=== PATIENT | female | born 1955 | race Caucasian/White ===

== ENCOUNTER → 2017-03-04 | Outpatient (CLI) | payer OTHER ==
--- NOTE | 2017-03-07 10:13 | MM ---
Reason for exam: screening (asymptomatic). Last mammogram was performed 1 year and 1 month ago. History: Family history of breast cancer in sister at age 40. Physical Findings: A clinical breast exam by your physician is recommended on an annual basis and results should be correlated with mammographic findings. MG Screening Mammo w CAD Bilateral CC and MLO view(s) were taken. Prior study comparison: January 31, 2016, mammogram, performed at [facility]. January 27, 2015, mammogram, performed at [facility]. The breast tissue is heterogeneously dense. This may lower the sensitivity of mammography. Benign calcifications. Focal asymmetry upper outer left breast. This finding is changed when compared with previous exams. ASSESSMENT: Incomplete: need additional imaging evaluation, BI-RAD 0 RECOMMENDATION: Special view mammogram of the left breast. If lesion persists on supplemental views, image directed ultrasound is recommended. [facility] will attempt to contact patient to return for supplemental views and ultrasound if indicated.
== END | disposition home or self-care (01) ==
LOC: RADMAMWWP 07:41
PROVIDERS: ATTEND Family Medicine
DX: Z12.31 Encounter for screening mammogram for malignant neoplasm of breast (principal); Z80.3 Family history of malignant neoplasm of breast

== ENCOUNTER → 2017-03-20 | Outpatient (CLI) | payer OTHER ==
--- NOTE | 2017-03-20 08:22 | MM ---
Reason for exam: additional evaluation requested from abnormal screening. Last mammogram was performed 1 month ago. History: Family history of breast cancer in sister at age 40. Physical Findings: Nurse did not find any significant physical abnormalities on exam. MG 3D Work Up W/Cad LT LM, spot compression CC, and spot compression MLO view(s) were taken of the left breast. Prior study comparison: March 04, 2017, bilateral MG screening mammo w CAD. January 31, 2016, mammogram, performed at [facility]. There is no discrete abnormality, including area of concern. 6 month follow up recommended. These results were verbally communicated with the patient and result sheet given to the patient on 03/20/17. ASSESSMENT: Probably benign, BI-RAD 3 RECOMMENDATION: Follow-up diagnostic mammogram of the left breast in 6 months.
== END | disposition home or self-care (01) ==
LOC: RADMAMWWP 07:29
PROVIDERS: ATTEND Family Medicine
DX: R92.8 Other abnormal and inconclusive findings on diagnostic imaging of breast (principal)
CPT/HCPCS: G0206; G0279

== ENCOUNTER 2017-05-03 02:03 | Emergency (ER) | payer OTHER ==
[2017-05-03] MEDS ORDERED: ONDANSETRON 4 MG/2 ML VIAL IVP STA (02:07)
[2017-05-03 02:09] LABS: Glucose,Whole Blood 159 mg/dL (75-99)
--- NOTE | 2017-05-03 02:11 | ED ---
General Adult HPI - General Stated complaint: altered mental status Time Seen by Provider: 05/03/17 02:03 Source: RN notes reviewed - History of Present Illness Initial comments: This is a 62-year-old female with a past medical history significant for high blood pressure. Patient states she was in the waiting room because she had brought her to the hospital. Patient states while sitting there she became nauseated and then dizzy then according to the staff in the waiting room she passed out. Patient did vomit a little as well. By the time the patient was wheeled back to room 20 she was alert she was in the hospital new she had brought her . Patient states she still felt a little dizzy and mildly nauseated. Patient denies any headache patient denies numbness weakness. Patient denies any chest pain palpitations difficulty breathing or shortness of breath. Patient denies any back pain. Patient denies abdominal pain patient denies nausea vomiting diarrhea. Patient denies having any symptoms prior to coming to the hospital. Patient denies any recent fever chills or cough. Patient did admit to having 3 drinks prior to coming to the hospital. - Related Data Home Medications Medication Instructions Recorded Confirmed Aspirin 81 mg PO DAILY 02/07/16 05/03/17 Lisinopril [Prinivil] 10 mg PO DAILY 02/07/16 05/03/17 Multivitamins, Thera [Multivitamin] 1 tab PO DAILY 02/07/16 05/03/17 Simvastatin [Zocor] 40 mg PO HS 02/07/16 05/03/17 Allergies Allergy/AdvReac Type Severity Reaction Status Date / Time No Known Allergies Allergy Verified 07/07/16 15:58 Review of Systems ROS Statement: Those systems with pertinent positive or pertinent negative responses have been documented in the HPI. ROS Other: All systems not noted in ROS Statement are negative. Past Medical History Past Medical History: GERD/Reflux, Hyperlipidemia, Hypertension Additional Past Medical History / Comment(s): GERD MILD, YEARS AGO. C/O FEELING LIKE "THROAT SWOLLEN, PRESSURE IN CHEST" FOR 3-4 WKS; OCC SL PAIN IN SHOULDER BLADES. History of Any Multi-Drug Resistant Organisms: None Reported Past Surgical History: Bladder Surgery, Hysterectomy, Orthopedic Surgery Additional Past Surgical History / Comment(s): BLADDER SUSPENSION. LASER OF VARICOSE VEINS. TOTAL RT KNEE. Past Anesthesia/Blood Transfusion Reactions: Motion Sickness Past Psychological History: No Psychological Hx Reported Smoking Status: Former smoker Past Alcohol Use History: None Reported Additional Past Alcohol Use History / Comment(s): SMOKED FEW YEARS, SOCIALLY IN PAST. Past Drug Use History: None Reported - Past Family History Sister(s) Family Medical History: Cancer, Deep Vein Thrombosis (DVT) General Exam - General Exam Comments Initial Comments: GENERAL: Patient is well-developed and well-nourished. Patient is nontoxic and well- hydrated and is in mild distress. ENT: Neck is soft and supple. No significant lymphadenopathy is noted. Oropharynx is clear. Moist mucous membranes. Neck has full range of motion without eliciting any pain. EYES: The sclera were anicteric and conjunctiva were pink and moist. Extraocular movements were intact and pupils were equal round and reactive to light. Eyelids were unremarkable. PULMONARY: Unlabored respirations. Good breath sounds bilaterally. No audible rales rhonchi or wheezing was noted. CARDIOVASCULAR: There is a regular rate and rhythm without any murmurs gallops or rubs. ABDOMEN: Soft and nontender with normal bowel sounds. No palpable organomegaly was noted. There is no palpable pulsatile mass. SKIN: Skin is clear with no lesions or rashes and otherwise unremarkable. NEUROLOGIC: Patient is alert and oriented x3. Cranial nerves II through XII are grossly intact. Motor and sensory are also intact. Normal speech, volume and content. Symmetrical smile. MUSCULOSKELETAL: Normal extremities with adequate strength and full range of motion. LYMPHATICS: No significant lymphadenopathy is noted PSYCHIATRIC: Normal psychiatric evaluation. Normal interpersonal interactions appears functionally intact in deals appropriately with others. Course Vital Signs 05/03/17 05/03/17 02:05 03:19 Temperature 97.8 F Pulse Rate 69 64 Respiratory 20 14 Rate Blood Pressure 150/69 134/69 O2 Sat by Pulse 95 98 Oximetry Medical Decision Making - Medical Decision Making EKG shows normal sinus rhythm at 66 bpm PA interval is 154 QRS is 98 QT interval is 458 QTC is 480. Patient's EKG shows no ST segment elevation or depression. I compared this EKG to an old EKG no acute changes were noted. Chest x-ray shows no acute normalities. Patient remains asymptomatic since she was brought back into the emergency department. I offered the patient admission but she did not feel as though she needs to stay and said she follow-up with her own medical doctor. - Lab Data Result diagrams: 05/03/17 02:15 05/03/17 02:15 Lab Results 05/03/17 05/03/17 05/03/17 Range/Units 02:07 02:15 02:15 WBC 9.2 (3.8-10.6) k/uL RBC 4.78 (3.80-5.40) m/uL Hgb 15.1 (11.4-16.0) gm/dL Hct 43.4 (34.0-46.0) % MCV 90.8 (80.0-100.0) fL MCH 31.7 (25.0-35.0) pg MCHC 34.9 (31.0-37.0) g/dL RDW 13.8 (11.5-15.5) % Plt Count 270 (150-450) k/uL Neutrophils % 43 % Lymphocytes % 45 % Monocytes % 5 % Eosinophils % 4 % Basophils % 1 % Neutrophils # 3.9 (1.3-7.7) k/uL Lymphocytes # 4.1 (1.0-4.8) k/uL Monocytes # 0.5 (0-1.0) k/uL Eosinophils # 0.3 (0-0.7) k/uL Basophils # 0.1 (0-0.2) k/uL PT (9.0-12.0) sec INR (<1.2) APTT (22.0-30.0) sec Sodium (137-145) mmol/L Potassium (3.5-5.1) mmol/L Chloride (98-107) mmol/L Carbon Dioxide (22-30) mmol/L Anion Gap mmol/L BUN (7-17) mg/dL Creatinine (0.52-1.04) mg/dL Est GFR (MDRD) Af Amer (>60 ml/min/1.73 sqM) Est GFR (MDRD) Non-Af (>60 ml/min/1.73 sqM) Glucose (74-99) mg/dL POC Glucose (mg/dL) 159 H (75-99) mg/dL POC Glu Resort Keeper ID Danitza Cardona Calcium (8.4-10.2) mg/dL Magnesium (1.6-2.3) mg/dL Total Bilirubin (0.2-1.3) mg/dL AST (14-36) U/L ALT (9-52) U/L Alkaline Phosphatase (38-126) U/L Total Creatine Kinase 54 (30-135) U/L CK-MB (CK-2) 0.4 (0.0-2.4) ng/mL CK-MB (CK-2) Rel Index 0.7 Troponin I <0.012 (0.000-0.034) ng/mL Total Protein (6.3-8.2) g/dL Albumin (3.5-5.0) g/dL Serum Alcohol mg/dL 05/03/17 05/03/17 Range/Units 02:15 02:15 WBC (3.8-10.6) k/uL RBC (3.80-5.40) m/uL Hgb (11.4-16.0) gm/dL Hct (34.0-46.0) % MCV (80.0-100.0) fL MCH (25.0-35.0) pg MCHC (31.0-37.0) g/dL RDW (11.5-15.5) % Plt Count (150-450) k/uL Neutrophils % % Lymphocytes % % Monocytes % % Eosinophils % % Basophils % % Neutrophils # (1.3-7.7) k/uL Lymphocytes # (1.0-4.8) k/uL Monocytes # (0-1.0) k/uL Eosinophils # (0-0.7) k/uL Basophils # (0-0.2) k/uL PT 10.1 (9.0-12.0) sec INR 1.0 (<1.2) APTT 19.0 L (22.0-30.0) sec Sodium 141 (137-145) mmol/L Potassium 3.4 L (3.5-5.1) mmol/L Chloride 106 (98-107) mmol/L Carbon Dioxide 21 L (22-30) mmol/L Anion Gap 14 mmol/L BUN 15 (7-17) mg/dL Creatinine 0.80 (0.52-1.04) mg/dL Est GFR (MDRD) Af Amer >60 (>60 ml/min/1.73 sqM) Est GFR (MDRD) Non-Af >60 (>60 ml/min/1.73 sqM) Glucose 137 H (74-99) mg/dL POC Glucose (mg/dL) (75-99) mg/dL POC Glu Resort Keeper ID Calcium 9.5 (8.4-10.2) mg/dL Magnesium 2.2 (1.6-2.3) mg/dL Total Bilirubin 0.3 (0.2-1.3) mg/dL AST 28 (14-36) U/L ALT 34 (9-52) U/L Alkaline Phosphatase 55 (38-126) U/L Total Creatine Kinase (30-135) U/L CK-MB (CK-2) (0.0-2.4) ng/mL CK-MB (CK-2) Rel Index Troponin I (0.000-0.034) ng/mL Total Protein 6.8 (6.3-8.2) g/dL Albumin 4.3 (3.5-5.0) g/dL Serum Alcohol 17 mg/dL Disposition Clinical Impression: Vasovagal syncope Disposition: HOME SELF-CARE Instructions: Syncope (ED), Hypotension (ED) Referrals: Nonstaff,Physician [REFERRING] - 1-2 days Time of Disposition: 04:10
[2017-05-03 02:25] LABS: Basophils # (A) 0.1 k/uL (0-0.2); Basophils % (A) 1 %; CHCM 35.4; Eosinophils # (A) 0.3 k/uL (0-0.7); Eosinophils % (A) 4 %; HCT 43.4 % (34.0-46.0); HDW 2.54; HGB 15.1 gm/dL (11.4-16.0); Luc # (Auto) 0.21; Luc % (Auto) 2; Lymphocytes # (A) 4.1 k/uL (1.0-4.8); Lymphocytes % (A) 45 %; MCH 31.7 pg (25.0-35.0); MCHC 34.9 g/dL (31.0-37.0); MCV 90.8 fL (80.0-100.0); Mean Platelet Volume 7.5; Monocytes # (A) 0.5 k/uL (0-1.0); Monocytes % (A) 5 %; Neutrophils # (A) 3.9 k/uL (1.3-7.7); Neutrophils % (A) 43 %; RBC 4.78 m/uL (3.80-5.40); RDW 13.8 % (11.5-15.5); WBC 9.2 k/uL (3.8-10.6)
[2017-05-03 02:35] LABS: Prothrombin Time 10.1 sec (9.0-12.0)
[2017-05-03 02:38] LABS: ALT 34 U/L (9-52); AST 28 U/L (14-36); Alcohol 17 mg/dL; Alkaline Phosphatase 55 U/L (38-126); Anion Gap 14 mmol/L; Blood Urea Nitrogen 15 mg/dL (7-17); Calcium 9.5 mg/dL (8.4-10.2); Carbon Dioxide 21 mmol/L (22-30); Chloride 106 mmol/L (98-107); Glucose 137 mg/dL (74-99); Magnesium 2.2 mg/dL (1.6-2.3); Non-African American GFR(MDRD) >60 (>60 ml/min/1.73 sqM); Potassium 3.4 mmol/L (3.5-5.1); Sodium 141 mmol/L (137-145); Total Bilirubin 0.3 mg/dL (0.2-1.3); Total Protein 6.8 g/dL (6.3-8.2)
[2017-05-03] MEDS ORDERED: SODIUM CHLORIDE 0.9% 1,000 ML IV ONE (02:42)
[2017-05-03 02:46] LABS: Creatine Kinase 54 U/L (30-135)
[2017-05-03 02:59] LABS: Creatine Kinase MB 0.4 ng/mL (0.0-2.4); Troponin I <0.012 ng/mL (0.000-0.034)
--- NOTE | 2017-05-03 03:56 | XR ---
Exam: XR CXR 2 VIEWS History: Chest pain. Comparison: None provided. Technique: Frontal and lateral views. Findings: No definite consolidation or significant effusion. The heart shadow is top normal in transverse dimension. Minimal prominence of pulmonary vessels. Findings are probably accentuated by low lung volumes/technique. Minimal congestion is not ruled out. Impression: Question mild congestion/volume overload. No consolidation.
[2017-05-03] MEDS ORDERED: ONDANSETRON 4 MG ODT STARTER PACK 2 TAB BTL PO STA (04:12)
[2017-05-03 04:33] VITALS: BP 140/70; PULSE 68; RESP 16; TEMP 97.9
== END 2017-05-03 04:42 | disposition home or self-care (01) ==
LOC: EC 02:03
DX: R55 Syncope and collapse (principal); R11.2 Nausea with vomiting, unspecified; E78.5 Hyperlipidemia, unspecified; I10 Essential (primary) hypertension; Z87.891 Personal history of nicotine dependence; Z79.82 Long term (current) use of aspirin; Z79.899 Other long term (current) drug therapy
CPT/HCPCS: 36415; 93005; 80053; 82550; 82553; 83735; 84484; 85025; 85610; 85730; 80320; 71020; 99285; 96374; 96361; J2405; S0119

== ENCOUNTER → 2017-09-09 | Outpatient (CLI) | payer OTHER ==
--- NOTE | 2017-09-10 07:55 | MM ---
Reason for exam: follow-up at short interval from prior study. Last mammogram was performed 6 months ago. History: Family history of breast cancer in sister at age 40. Physical Findings: Nurse did not find any significant physical abnormalities on exam. MG 3D Diag Mammo W/Cad LT CC, MLO, and spot compression MLO view(s) were taken of the left breast. Prior study comparison: March 20, 2017, left breast MG 3d work up w/cad LT. March 04, 2017, bilateral MG screening mammo w CAD. There are scattered fibroglandular densities. The originally questioned superior asymmetric density has an appearance unchanged from older priors. These results were verbally communicated with the patient and result sheet given to the patient on 09/09/17. ASSESSMENT: Negative, BI-RAD 1 RECOMMENDATION: Return to routine screening mammogram schedule for both breasts. Back on schedule.
== END | disposition home or self-care (01) ==
LOC: RADMAMWWP 14:57
PROVIDERS: ATTEND Family Medicine
DX: R92.8 Other abnormal and inconclusive findings on diagnostic imaging of breast (principal)
CPT/HCPCS: G0206; G0279

== ENCOUNTER 2017-10-02 10:26 | Day surgery (SDC) | payer OTHER ==
[2017-09-30 16:01] VITALS: BMI 32.1
[~2017-10-02 10:26] MED LIST: LACTATED RINGERS 1,000 ML IV SCH; LIDOCAINE 1% 20 ML VIAL (10MG/ML) FOR IV START INTRADERMA PRN
[2017-10-02] MEDS ORDERED: LACTATED RINGERS 1,000 ML IV ONE ×2 (11:18)
[2017-10-02 11:21] VITALS: TEMP 97
[2017-10-02] MEDS ORDERED: LIDOCAINE 1% INJ 10MG/ML (20 ML MDV) ONE (11:51)
[2017-10-02] MEDS ORDERED: PROPOFOL 10 MG/ML 20 ML VIAL IV ONE (11:51)
--- NOTE | 2017-10-02 12:10 | P.PCN ---
Date of Procedure: 10/02/17 Procedure(s) Performed: BRIEF HISTORY: Patient is a 62-year-old pleasant white female, scheduled for an elective colonoscopy as a part of screening for colorectal neoplasia. Her last colonoscopy was 10 years ago and was normal. PROCEDURE PERFORMED: Colonoscopy. PREOPERATIVE DIAGNOSIS: Screening for colon cancer. IV sedation per Anesthesia. PROCEDURE: After informed consent was obtained, the patient, was brought into the endoscopy unit. IV sedation was administered by Anesthesia under continuous monitoring. Digital rectal examination was normal. Initially the Olympus CF- 160 flexible video colonoscope was then inserted in the rectum, gradually advanced into the cecum without any difficulty. Careful examination was performed as the scope was gradually being withdrawn. Ileocecal valve and the appendiceal orifice were visualized and appeared normal. Prep was excellent. Mucosa of the cecum, ascending colon, transverse colon, descending colon, sigmoid colon, and rectum appeared normal. Scattered sigmoid diverticulosis seen. Retroflexion was performed in the rectum and no lesions were seen. The patient tolerated the procedure well. IMPRESSION: Normal-appearing colon from rectum to cecum with no evidence of colorectal neoplasia. Scattered sigmoidal reticulosis. RECOMMENDATIONS: Findings of this examination were discussed with the patient as well as her family. She was advised to have a repeat screening colonoscopy in 10 years.
[2017-10-02 12:14] VITALS: BP 118/59
[2017-10-02 12:26] VITALS: PULSE 73; RESP 16
== END 2017-10-02 12:47 | disposition home or self-care (01) ==
LOC: ORWHC2ENDO 10:26
PROVIDERS: ATTEND Internal Medicine Gastroenterology
DX: Z12.11 Encounter for screening for malignant neoplasm of colon (principal); K57.30 Diverticulosis of large intestine without perforation or abscess without bleeding; I10 Essential (primary) hypertension; E78.5 Hyperlipidemia, unspecified; Z79.899 Other long term (current) drug therapy; Z96.659 Presence of unspecified artificial knee joint
CPT/HCPCS: G0121; J2001; J2704

== ENCOUNTER 2018-01-29 17:21 | Emergency (ER) | payer BC, OTHER ==
--- NOTE | 2018-01-29 19:00 | ED ---
General Adult HPI - General Chief complaint: Weakness Stated complaint: ABNORMAL EKG, NAUSEA, NEAR SYNCOPE Time Seen by Provider: 01/29/18 17:50 Source: patient Mode of arrival: ambulatory Limitations: no limitations - History of Present Illness Initial comments: This 62-year-old white female presents for presyncope. She relates that she was at a restaurant. She developed some abdominal cramping and went to the bathroom and had a diarrhea episode. She felt presyncopal and laid down on the floor. She states that she had 2 additional diarrhea episodes. She felt somewhat weak afterwards and went back into the restaurant and felt presyncopal again. They laid her down on the floor. She then went to a clinic and they sent her to the emergency department via EMS. She denies any chest pain or shortness breath during this incident. She states that she has not had any further abdominal pain or diarrhea. She denies any further presyncopal feelings or dizziness. She essentially feels back to normal. She does relate that she had one episode that was very similar approximately a year ago while she was in our emergency department when her was being evaluated. She apparently did pass out at that time and was evaluated in the emergency department and hospital and they never found out the exact cause. She denies any other medical complaints or modifying factors. - Related Data Home Medications Medication Instructions Recorded Confirmed Aspirin 81 mg PO DAILY 02/07/16 01/29/18 Lisinopril [Prinivil] 10 mg PO DAILY 02/07/16 01/29/18 Multivitamins, Thera [Multivitamin] 1 tab PO DAILY 02/07/16 01/29/18 Simvastatin [Zocor] 40 mg PO HS 02/07/16 01/29/18 Oxybutynin Xl [Ditropan Xl] 5 mg PO DAILY 01/29/18 01/29/18 Ubidecarenone [Co Q-10] 100 mg PO DAILY 01/29/18 01/29/18 Vitamin B Complex 1 cap PO DAILY 01/29/18 01/29/18 Allergies Allergy/AdvReac Type Severity Reaction Status Date / Time No Known Allergies Allergy Verified 01/29/18 18:55 Review of Systems ROS Statement: Those systems with pertinent positive or pertinent negative responses have been documented in the HPI. ROS Other: All systems not noted in ROS Statement are negative. Past Medical History Past Medical History: GERD/Reflux, Hyperlipidemia, Hypertension Additional Past Medical History / Comment(s): urinary incontinence History of Any Multi-Drug Resistant Organisms: None Reported Past Surgical History: Bladder Surgery, Hysterectomy, Orthopedic Surgery, Tonsillectomy Additional Past Surgical History / Comment(s): BLADDER SUSPENSION. LASER OF VARICOSE VEINS. TOTAL RT KNEE. Past Anesthesia/Blood Transfusion Reactions: Motion Sickness Past Psychological History: No Psychological Hx Reported Smoking Status: Never smoker Past Alcohol Use History: Rare Past Drug Use History: None Reported - Past Family History Sister(s) Family Medical History: Cancer, Deep Vein Thrombosis (DVT) Additional Family Medical History / Comment(s): one sister ca, one had DVT General Exam - General Exam Comments Initial Comments: GENERAL: The patient is well nourished and well hydrated. VITAL SIGNS: Heart rate, blood pressure, respiratory rate reviewed as recorded in nurse's notes. EYES: Pupils are round and reactive. Extraocular movements are intact. No conjunctival / lid redness or swelling. ENT: No external evidence of injury, swelling, or ecchymosis. Airway is patent. Throat is clear. NECK: Nontender. No swelling or evidence of injury. No subcutaneous emphysema. Trachea is midline. No thyroid mass. HEART: Regular rate and rhythm. Good peripheral pulses. LUNGS/CHEST: Breath sounds clear and equal bilaterally. No rales, rhonchi, or wheezes. No ecchymosis, subcutaneous emphysema, or tenderness. ABDOMEN: Abdomen soft without tenderness. No palpable masses or organomegaly. No peritoneal signs. No abdominal wall swelling or ecchymosis. EXTREMITIES: No extremity tenderness. Normal muscle tone and function. No thoracolumbar tenderness. NEUROLOGIC: Sensation is grossly intact. Cranial nerve exam reveals face is symmetrical, tongue is midline, speech is clear. SKIN: No abrasions or ecchymosis is noted. No induration or masses noted. PSYCHIATRIC: Alert and oriented. Appropriate behavior and judgment. Limitations: no limitations Course Vital Signs 01/29/18 01/29/18 18:02 19:02 Temperature 98.6 F Pulse Rate 67 73 Respiratory 19 19 Rate Blood Pressure 161/82 167/77 O2 Sat by Pulse 96 100 Oximetry Medical Decision Making - Medical Decision Making The patient was seen and examined. All diagnostics were reviewed. The patient had an EKG done which shows a normal sinus rhythm at a heart rate of 68. There is some T-wave inversions in the V3 through V6 as well as 1 and aVL. There is no ST elevation identified. The WV intervals 136, QRS duration is 86, and the QTC intervals 450. The old EKG was reviewed from April 2017 and this also shows similar T-wave inversions in the same leads. EMS EKG is reviewed and is similar. The patient also had a laboratory analysis that was all essentially within normal limits. On recheck she states that she is feeling back to her normal state and is not having any further episodes of abdominal pain, diarrhea , or presyncope. Overall, it is felt as though she likely did have a vasovagal episode from the abdominal pain and diarrhea. It sounds as though she likely had a vasovagal episode on the last admission as well. Nevertheless, she feels quite well at this time and it is felt as though she is stable for discharge and close follow-up with her doctor. Upon being discharged, she relates that she had some hematuria well at the clinic prior to arrival. She is denying any frequency, urgency, or dysuria, or gross hematuria. She is offered to have a urinalysis completed but refused and will follow-up with her primary care physician for a urinalysis. - Lab Data Result diagrams: 01/29/18 18:45 01/29/18 18:45 Lab Results 01/29/18 01/29/18 01/29/18 Range/Units 18:45 18:45 18:45 WBC 9.8 (3.8-10.6) k/uL RBC 5.03 (3.80-5.40) m/uL Hgb 15.0 (11.4-16.0) gm/dL Hct 43.7 (34.0-46.0) % MCV 86.9 (80.0-100.0) fL MCH 29.8 (25.0-35.0) pg MCHC 34.3 (31.0-37.0) g/dL RDW 12.4 (11.5-15.5) % Plt Count 231 (150-450) k/uL Neutrophils % 79 % Lymphocytes % 16 % Monocytes % 3 % Eosinophils % 1 % Basophils % 0 % Neutrophils # 7.8 H (1.3-7.7) k/uL Lymphocytes # 1.6 (1.0-4.8) k/uL Monocytes # 0.3 (0-1.0) k/uL Eosinophils # 0.1 (0-0.7) k/uL Basophils # 0.0 (0-0.2) k/uL PT (9.0-12.0) sec INR (<1.2) APTT (22.0-30.0) sec Sodium 143 (137-145) mmol/L Potassium 4.3 (3.5-5.1) mmol/L Chloride 104 (98-107) mmol/L Carbon Dioxide 22 (22-30) mmol/L Anion Gap 17 mmol/L BUN 18 H (7-17) mg/dL Creatinine 0.60 (0.52-1.04) mg/dL Est GFR (CKD-EPI)AfAm >90 (>60 ml/min/1.73 sqM) Est GFR (CKD-EPI)NonAf >90 (>60 ml/min/1.73 sqM) Glucose 106 H (74-99) mg/dL Calcium 10.0 (8.4-10.2) mg/dL Total Bilirubin 0.4 (0.2-1.3) mg/dL AST 30 (14-36) U/L ALT 29 (9-52) U/L Alkaline Phosphatase 59 (38-126) U/L Total Creatine Kinase 60 (30-135) U/L CK-MB (CK-2) 0.3 (0.0-2.4) ng/mL CK-MB (CK-2) Rel Index 0.5 Troponin I <0.012 (0.000-0.034) ng/mL Total Protein 7.0 (6.3-8.2) g/dL Albumin 4.8 (3.5-5.0) g/dL 01/29/18 Range/Units 18:45 WBC (3.8-10.6) k/uL RBC (3.80-5.40) m/uL Hgb (11.4-16.0) gm/dL Hct (34.0-46.0) % MCV (80.0-100.0) fL MCH (25.0-35.0) pg MCHC (31.0-37.0) g/dL RDW (11.5-15.5) % Plt Count (150-450) k/uL Neutrophils % % Lymphocytes % % Monocytes % % Eosinophils % % Basophils % % Neutrophils # (1.3-7.7) k/uL Lymphocytes # (1.0-4.8) k/uL Monocytes # (0-1.0) k/uL Eosinophils # (0-0.7) k/uL Basophils # (0-0.2) k/uL PT 10.2 (9.0-12.0) sec INR 1.0 (<1.2) APTT 20.7 L (22.0-30.0) sec Sodium (137-145) mmol/L Potassium (3.5-5.1) mmol/L Chloride (98-107) mmol/L Carbon Dioxide (22-30) mmol/L Anion Gap mmol/L BUN (7-17) mg/dL Creatinine (0.52-1.04) mg/dL Est GFR (CKD-EPI)AfAm (>60 ml/min/1.73 sqM) Est GFR (CKD-EPI)NonAf (>60 ml/min/1.73 sqM) Glucose (74-99) mg/dL Calcium (8.4-10.2) mg/dL Total Bilirubin (0.2-1.3) mg/dL AST (14-36) U/L ALT (9-52) U/L Alkaline Phosphatase (38-126) U/L Total Creatine Kinase (30-135) U/L CK-MB (CK-2) (0.0-2.4) ng/mL CK-MB (CK-2) Rel Index Troponin I (0.000-0.034) ng/mL Total Protein (6.3-8.2) g/dL Albumin (3.5-5.0) g/dL Disposition Clinical Impression: Pre-syncope, Vaso vagal episode, Hypertension, Abdominal pain, Diarrhea Disposition: HOME SELF-CARE Condition: Good Instructions: Near Syncope (ED), Hypertension (ED) Additional Instructions: We feel as though here symptoms may be related to a vagal episode. Is patient prescribed a controlled substance at discharge?: No Referrals: Yoni Schmidt MD [Primary Care Provider] - 1-2 days Time of Disposition: 19:44
[2018-01-29 19:01] LABS: Basophils % (A) 0 %; Eosinophils # (A) 0.1 k/uL (0-0.7); Eosinophils % (A) 1 %; HCT 43.7 % (34.0-46.0); Lymphocytes # (A) 1.6 k/uL (1.0-4.8); Lymphocytes % (A) 16 %; MCH 29.8 pg (25.0-35.0); MCHC 34.3 g/dL (31.0-37.0); MCV 86.9 fL (80.0-100.0); Mean Platelet Volume 7.6; Monocytes # (A) 0.3 k/uL (0-1.0); Monocytes % (A) 3 %; Neutrophils # (A) 7.8 k/uL (1.3-7.7); Neutrophils % (A) 79 %; Platelet Count 231 k/uL (150-450); RBC 5.03 m/uL (3.80-5.40); RDW 12.4 % (11.5-15.5); WBC 9.8 k/uL (3.8-10.6)
[2018-01-29 19:04] LABS: ALT 29 U/L (9-52); AST 30 U/L (14-36); Albumin 4.8 g/dL (3.5-5.0); Alkaline Phosphatase 59 U/L (38-126); Anion Gap 17 mmol/L; Blood Urea Nitrogen 18 mg/dL (7-17); Carbon Dioxide 22 mmol/L (22-30); Chloride 104 mmol/L (98-107); Glucose 106 mg/dL (74-99); Potassium 4.3 mmol/L (3.5-5.1); Sodium 143 mmol/L (137-145); Total Bilirubin 0.4 mg/dL (0.2-1.3)
[2018-01-29 19:09] LABS: Prothrombin Time 10.2 sec (9.0-12.0)
[2018-01-29 19:11] LABS: Partial Thromboplastin Time 20.7 sec (22.0-30.0)
[2018-01-29 19:13] LABS: Creatine Kinase 60 U/L (30-135)
[2018-01-29 19:26] LABS: Creatine Kinase MB 0.3 ng/mL (0.0-2.4); Troponin I <0.012 ng/mL (0.000-0.034)
[2018-01-29 19:57] VITALS: BP 153/73; PULSE 63; RESP 16; TEMP 97.8
== END 2018-01-29 20:06 | disposition home or self-care (01) ==
LOC: EC 17:21
DX: I10 Essential (primary) hypertension (principal); R19.7 Diarrhea, unspecified; R10.9 Unspecified abdominal pain; R55 Syncope and collapse; E78.5 Hyperlipidemia, unspecified; Z79.82 Long term (current) use of aspirin; Z79.899 Other long term (current) drug therapy; Z87.448 Personal history of other diseases of urinary system
CPT/HCPCS: 36415; 80053; 82550; 82553; 84484; 85025; 85610; 85730; 93005; 99285

== ENCOUNTER → 2018-03-27 | Outpatient (CLI) | payer BC | LOC: RADECHMAIN 11:48 | PROVIDERS: ATTEND Psychiatry & Neurology Neurology | DX: R55 Syncope and collapse (principal); I49.9 Cardiac arrhythmia, unspecified | CPT/HCPCS: 93225; 93226 ==

== ENCOUNTER → 2018-04-23 | Outpatient (CLI) | payer BC ==
--- NOTE | 2018-04-23 13:10 | BD ---
EXAMINATION TYPE: Axial Bone Density DATE OF EXAM: 04/23/2018 COMPARISON: NONE CLINICAL HISTORY: 63-year-old female postmenopausal screening without HRT Height: 66 Weight: 182.8 FRAX RISK QUESTIONS: Alcohol (3 or more units per day): no Family History (Parent hip fracture): no Glucocorticoids (More than 3mos): no (Ex: prednisone, prednisolone, methylprednisolone, dexamethasone, and hydrocortisone). History of Fracture in Adulthood: no Secondary Osteoporosis: 1. Type 1 Diabetes: no 2. Hyperthyroidism: no 3. Menopause before 45: no 4. Malnutrition: no 5. Chronic liver disease: no Rheumatoid Arthritis: no Current Tobacco Use: no RISK FACTORS HISTORY OF: Family History of Osteoporosis: no Active: yes Diet low in dairy products/other sources of calcium: no Postmenopausal woman: total hysterectomy 15 years ago Lost more than 2 inches in height since high school: no MEDICATIONS: blood pressure med, cholesterol med, Additional History: EXAM MEASUREMENTS: Bone mineral densitometry was performed using the [employer] System. Bone mineral density as measured about the Lumbar spine is: ----- L1-L4(G/cm2): 1.375 T Score Values are as follows: ----- L2: 1.3 ----- L3: 1.8 ----- L4: 2.2 ----- L1-L4: 1.6 Bone mineral density : baseline Bone mineral density about the R hip (g/cm2): 0.824 Bone mineral density about the L hip (g/cm2): 0.856 T Score values are as follows: -----R Neck: -1.5 -----L Neck: -1.3 -----R Total: -0.9 -----L Total: -0.6 Bone mineral density : baseline IMPRESSION: Osteopenia (T Score between -2.5 and -1). There is slightly increased risk of fracture and the patient may be considered for treatment. Re-Screen 2-5 years. NOTE: T-SCORE=SD OF THE YOUNG ADULT MEAN.
--- NOTE | 2018-04-24 15:26 | MM ---
Reason for exam: screening (asymptomatic). Last mammogram was performed 7 months ago. History: Family history of breast cancer in sister at age 40. Physical Findings: A clinical breast exam by your physician is recommended on an annual basis and results should be correlated with mammographic findings. MG 3D Screening Mammo W/Cad Bilateral CC and MLO view(s) were taken. Prior study comparison: September 09, 2017, left breast MG 3d diag mammo w/cad LT. March 20, 2017, left breast MG 3d work up w/cad LT. The breast tissue is heterogeneously dense. This may lower the sensitivity of mammography. Asymmetric breast tissue left upper quadrant is stable. There is no discrete abnormality. ASSESSMENT: Negative, BI-RAD 1 RECOMMENDATION: Routine screening mammogram of both breasts in 1 year.
== END | disposition home or self-care (01) ==
LOC: RADMAMWWP 07:41
PROVIDERS: ATTEND Family Medicine
DX: Z12.31 Encounter for screening mammogram for malignant neoplasm of breast (principal); M85.852 Other specified disorders of bone density and structure, left thigh; M85.851 Other specified disorders of bone density and structure, right thigh; Z78.0 Asymptomatic menopausal state
CPT/HCPCS: 77063; 77067; 77080

== ENCOUNTER → 2019-05-12 | Outpatient (CLI) | payer MEDICARE ==
--- NOTE | 2019-05-13 11:15 | MM ---
Reason for exam: clinical finding. Last mammogram was performed 1 year and 1 month ago. History: Patient is postmenopausal. Family history of breast cancer in sister at age 40. Took estrogen for 4 months beginning at age 64. Physical Findings: Nurse did not find any significant physical abnormalities on exam. MG 3D Diag Mammo W/Cad [facility] Bilateral CC and MLO view(s) were taken. Prior study comparison: April 23, 2018, bilateral MG 3d screening mammo w/cad. September 09, 2017, left breast MG 3d diag mammo w/cad LT. The breast tissue is heterogeneously dense. This may lower the sensitivity of mammography. There is a benign left breast calcification. No suspicious abnormality. No significant new finding when compared with prior studies. ASSESSMENT: Benign, BI-RAD 2 RECOMMENDATION: Clinical correlation of the left breast. The diffuse left breast pain. Routine screening mammogram of both breasts in 1 year. Patient was given the results on 05/12/19.
== END | disposition home or self-care (01) ==
LOC: RADMAMWWP 09:33
PROVIDERS: ATTEND Family Medicine
DX: N64.4 Mastodynia (principal)
CPT/HCPCS: 77062; 77066

== ENCOUNTER → 2020-04-29 | Outpatient (CLI) | payer MEDICARE ==
--- NOTE | 2020-05-02 10:09 | MM ---
Reason for exam: screening (asymptomatic). Last mammogram was performed 1 year ago. History: Patient is postmenopausal. Family history of breast cancer in sister at age 40. Took estrogen for 4 months beginning at age 64. Physical Findings: A clinical breast exam by your physician is recommended on an annual basis and results should be correlated with mammographic findings. MG 3D Screening Mammo W/Cad Bilateral CC and MLO view(s) were taken. Prior study comparison: May 12, 2019, bilateral MG 3d diag mammo w/cad [facility]. April 23, 2018, bilateral MG 3d screening mammo w/cad. The breast tissue is heterogeneously dense. This may lower the sensitivity of mammography. No significant changes when compared with prior studies. ASSESSMENT: Benign, BI-RAD 2 RECOMMENDATION: Routine screening mammogram of both breasts in 1 year.
== END | disposition home or self-care (01) ==
LOC: RADMAMWWP 09:39
PROVIDERS: ATTEND Family Medicine
DX: Z12.31 Encounter for screening mammogram for malignant neoplasm of breast (principal)
CPT/HCPCS: 77063; 77067

== ENCOUNTER → 2020-05-09 | Outpatient (CLI) | payer MEDICARE ==
--- NOTE | 2020-05-09 14:04 | BD ---
EXAMINATION TYPE: Axial Bone Density DATE OF EXAM: 05/09/2020 COMPARISON: 04/23/2018 CLINICAL HISTORY: Height: 65.2 IN Weight: 182 LBS RISK FACTORS HISTORY OF: Active: YES Diet low in dairy products/other sources of calcium: YES Postmenopausal woman: PARTIAL HYSTERECTOMY AGE 43 MEDICATIONS: Additional Medications: BLOOD PRESSURE MEDS, AND CHOLESTEROL MEDS EXAM MEASUREMENTS: Bone mineral densitometry was performed using the [employer] System. Bone mineral density as measured about the Lumbar spine is: ----- L1-L4(G/cm2): 1.486 T Score Values are as follows: ----- L2: 2.2 ----- L3: 2.7 ----- L4: 3.4 ----- L1-L4: 2.5 Bone mineral density has: Increased 8.6% since study of: 04/23/2018 Bone mineral density about the R hip (g/cm2): 0.827 Bone mineral density about the L hip (g/cm2): 0.820 T Score values are as follows: -----R Neck: -1.5 -----L Neck: -1.6 -----R Total: -0.9 -----L Total: -0.9 Bone mineral density has: Decreased -2.4% since study of: 04/23/2018 IMPRESSION: Osteopenia (T Score between -2.5 and -1). There is slightly increased risk of fracture and the patient may be considered for treatment. Re-Screen 2-5 years. NOTE: T-SCORE=SD OF THE YOUNG ADULT MEAN.
== END ==
LOC: RADBDWWP 10:34
PROVIDERS: ATTEND Family Medicine
DX: M85.80 Other specified disorders of bone density and structure, unspecified site (principal); Z78.0 Asymptomatic menopausal state
CPT/HCPCS: 77080

== ENCOUNTER → 2021-02-14 | Outpatient (CLI) | payer MEDICARE ==
--- NOTE | 2021-02-14 12:26 | EST ---
EXERCISE STRESS AGE: 65 SEX: Female HT: 5'6-/2" WT: 185 pounds PROTOCOL: Moise. STAGE: II DURATION OF EXERCISE: 5 minutes 25 seconds HEART RATE REST: 72 BLOOD PRESSURE REST: 120/69 MAXIMUM HEART RATE ACHIEVED: 143 MAXIMUM BLOOD PRESSURE: 170/72 85% MPHR: 130 100% MPHR: 153 METS: 7.1 INDICATIONS: Chest pain. CLINICAL INFORMATION: Baseline rhythm is a sinus mechanism, rate of 72, T-wave inversion inferolateral leads cannot exclude ischemia. Baseline blood pressure 120/69 mmHg. Patient exercised on Moise protocol for 5 minute 25 seconds reaching peak rate 143 beats per minute which is equal to 94% maximum predicted heart rate. Peak blood pressure 170/72 mmHg. Electrocardiograph monitoring revealed no evidence of diagnostic ischemic ST deviation. Rare PVCs were noted. Cardiolite was injected at peak exercise. CONCLUSION: 1. Average exercise tolerance with no chest discomfort. 2. Nondiagnostic electrocardiograph stress testing secondary to baseline EKG abnormality. 3. Nuclear images will be reported separately. MMODL / IJN: [id number] /
--- NOTE | 2021-02-14 12:47 | NM ---
EXAMINATION TYPE: NM stress cardiolite complete DATE OF EXAM: 02/14/2021 COMPARISON: NONE HISTORY: Chest pain TECHNIQUE: After the intravenous administration of 9.7 mCi Tc 99m Sestamibi - Cardiolite resting SPE CT images acquired 45 minutes post injection. At peak stress 25.3 mCi Tc 99m Sestamibi - Stress images obtained 10 minutes post injection The patient was stressed with 0.4mg Lexiscan. FINDINGS: No fixed defects are evident No reversible stress defects on Spect images Wall motion is normal Ejection fraction is calculated to be 72 %. IMPRESSION: 1. No stress-induced ischemic change.
== END | disposition home or self-care (01) ==
LOC: RADNMMAIN 07:45
PROVIDERS: ATTEND Family Medicine
DX: R94.31 Abnormal electrocardiogram [ECG] [EKG] (principal)
CPT/HCPCS: 78452; 93017

== ENCOUNTER → 2021-05-16 | Outpatient (CLI) | payer MEDICARE ==
--- NOTE | 2021-05-22 11:51 | MM ---
Reason for exam: screening (asymptomatic). Last mammogram was performed 1 year and 1 month ago. History: Patient is postmenopausal. Family history of breast cancer in sister at age 40. Took estrogen for 4 months beginning at age 64. Physical Findings: A clinical breast exam by your physician is recommended on an annual basis and results should be correlated with mammographic findings. MG 3D Screening Mammo W/Cad Bilateral CC and MLO view(s) were taken. Prior study comparison: April 29, 2020, bilateral MG 3d screening mammo w/cad. May 12, 2019, bilateral MG 3d diag mammo w/cad [facility]. The breast tissue is heterogeneously dense. This may lower the sensitivity of mammography. No significant changes when compared with prior studies. ASSESSMENT: Negative, BI-RAD 1 RECOMMENDATION: Routine screening mammogram of both breasts in 1 year.
== END | disposition home or self-care (01) ==
LOC: RADMAMWWP 07:36
PROVIDERS: ATTEND Family Medicine
DX: Z12.31 Encounter for screening mammogram for malignant neoplasm of breast (principal); Z80.3 Family history of malignant neoplasm of breast
CPT/HCPCS: 77063; 77067

== ENCOUNTER → 2022-05-21 | Outpatient (CLI) | payer MEDICARE ==
--- NOTE | 2022-05-22 08:17 | MM ---
Reason for Exam: Screening (asymptomatic). Last screening mammogram was performed 12 month(s) ago. Patient History: Menarche at age 10. First Full-Term at age 25. Left ovary removed at age 49. Hysterectomy at age 49. Postmenopausal. Estrogen for 4 months from age 64 until age 64. Sister had breast cancer, age 40. Risk Values: Criss 5 year model risk: 3.4%. NCI Lifetime model risk: 10.2%. Prior Study Comparison: 05/12/2019 Bilateral Diagnostic Mammogram, [facility]. 04/29/2020 Bilateral Screening Mammogram, [facility] 05/16/2021 Bilateral Screening Mammogram, [facility]. Tissue Density: The breast tissue is heterogeneously dense. This may lower the sensitivity of mammography. Findings: Analyzed By CAD. There is no suspicious group of microcalcifications or new suspicious mass in either breast. Overall Assessment: Negative, BI-RAD 1 Management: Screening Mammogram of both breasts in 1 year. A clinical breast exam by your physician is recommended on an annual basis and results should be correlated with mammographic findings. Electronically signed and approved by: Haris Meek M.D. Radiologis
--- NOTE | 2022-05-22 16:35 | BD ---
EXAMINATION TYPE: Axial Bone Density DATE OF EXAM: 05/21/2022 CLINICAL HISTORY: 67 years year old Female. ICD-10 CODE: M89.9 disorder of bone Height: 66 Weight: 192.2 FRAX RISK QUESTIONS: Alcohol (3 or more units per day): no Family History (Parent hip fracture): no Glucocorticoids (More than 3mos): no (Ex: prednisone, prednisolone, methylprednisolone, dexamethasone, and hydrocortisone). History of Fracture in Adulthood: no Secondary Osteoporosis: 1. Type 1 Diabetes: no 2. Hyperthyroidism: no 3. Menopause before 45: yes 4. Malnutrition: no 5. Chronic liver disease: no Rheumatoid Arthritis: no Current Tobacco Use: no RISK FACTORS HISTORY OF: Surgery to Spine/Hip(right/left)/Wrist (right/left): no Family History of Osteoporosis: yes Active: yes Diet low in dairy products/other sources of calcium: yes Postmenopausal woman: yes Lost more than 2 inches in height since high school: no MEDICATIONS: Additional History: EXAM MEASUREMENTS: Bone mineral densitometry was performed using the [employer] System. Bone mineral density as measured about the Lumbar spine is: ----- L1-L4(G/cm2): 1.347 T Score Values are as follows: ----- L1: 0.6 ----- L2: 0.8 ----- L3: 1.8 ----- L4: 2.1 ----- L1-L4: 1.4 Bone mineral density has: decreased -1.4 % since study of: 04.23.2018 Bone mineral density about the R hip (g/cm2): 0.825 Bone mineral density about the L hip (g/cm2): 0.755 T Score values are as follows: -----R Neck: -1.5 -----L Neck: -2.0 -----R Total: -1.0 -----L Total: -1.3 Bone mineral density has: decreased -4.5 % since study of: 04.23.2018 FRAX%s: The graph provided illustrates a 11.5% chance for a major osteoporotic fx and a 2.1% chance f or the hips probability for fx in 10 years time. IMPRESSION: Osteopenia (T Score between -2.5 and -1). There is slightly increased risk of fracture and the patient may be considered for treatment. Re-Screen 2-5 years. NOTE: T-SCORE=SD OF THE YOUNG ADULT MEAN.
== END | disposition home or self-care (01) ==
LOC: RADMAMWWP 09:02
PROVIDERS: ATTEND Family Medicine
DX: Z12.31 Encounter for screening mammogram for malignant neoplasm of breast (principal); M89.9 Disorder of bone, unspecified
CPT/HCPCS: 77063; 77067; 77080

== ENCOUNTER → 2022-07-31 | Outpatient (CLI) | payer MEDICARE ==
--- NOTE | 2022-07-31 09:49 | USB ---
Reason for Exam: Clinical finding. Patient History: Menarche at age 10. First Full-Term at age 25. Left ovary removed at age 49. Hysterectomy at age 49. Postmenopausal. Estrogen for 4 months from age 64 until age 64. Sister had breast cancer, age 40. Risk Values: Criss 5 year model risk: 3.4%. NCI Lifetime model risk: 10.2%. Technique: Method: Whole Breast Handheld. Prior Study Comparison: 04/29/2020 Bilateral Screening Mammogram, [facility]. 05/16/2021 Bilateral Screening Mammogram, [facility]. 05/21/2022 Bilateral MG 3D screening mammo w/cad, [facility]. Findings: The whole breast of the left breast, the axilla of the left breast and the retroareolar of the left breast were scanned. A complete US of all four quadrants of the breast and retro-areolar region were reviewed. No solid or cystic masses are identified. No axillary lymphadenopathy. Overall Assessment: Negative, BI-RAD 1 Management: Screening Mammogram of both breasts in 10 months. Further clinical management of patient's left breast pain. Patient should continue monthly self breast exams. These results should not preclude additional follow-up of suspicious palpable abnormalities. ??Results were given to the patient verbally at the time of exam. Electronically signed and approved by: Jeane Lawson M.D. Radiologist
== END | disposition home or self-care (01) ==
LOC: RADUSWWP 08:56
PROVIDERS: ATTEND Family Medicine
DX: N64.4 Mastodynia (principal)

== ENCOUNTER 2022-10-23 08:59 | Emergency (ER) | payer MEDICARE ==
[2022-10-23 09:08] VITALS: TEMP 98.1
[2022-10-23] MEDS ORDERED: SODIUM CHLORIDE 0.9% 500 ML 500 ML IV STA (09:27)
--- NOTE | 2022-10-23 09:30 | ED ---
GI Bleed HPI - General Chief complaint: GI Bleed Stated complaint: GI bleed Time Seen by Provider: 10/23/22 09:09 Source: patient, RN notes reviewed, old records reviewed Mode of arrival: ambulatory Limitations: no limitations - History of Present Illness Initial comments: 67-year-old female presents to the emergency room with mild lower abdominal pain. States started yesterday evening around 11:00 with multiple episodes of diarrhea. Did notice some pink tinged stool and then this morning was red in color. Last episode was 3 AM. No longer having pain. Denies any nausea vomiting. No fevers. Does have a history of hemorrhoids. Last colonoscopy was approximately 8 years ago. Also with history of GERD and hypertension. MD complaint: blood streaked stool -: days(s) (1) Radiation: none Severity scale (1-10): 1 Quality: dull (lower abdomen) Consistency: intermittent - Related Data Home Medications Medication Instructions Recorded Confirmed Aspirin 81 mg PO DAILY 02/07/16 01/29/18 Multivitamins, Thera [Multivitamin] 1 tab PO DAILY 02/07/16 01/29/18 Simvastatin [Zocor] 40 mg PO HS 02/07/16 01/29/18 lisinopriL [Prinivil] 10 mg PO DAILY 02/07/16 01/29/18 Oxybutynin Xl [Ditropan Xl] 5 mg PO DAILY 01/29/18 01/29/18 Ubidecarenone [Co Q-10] 100 mg PO DAILY 01/29/18 01/29/18 Vitamin B Complex 1 cap PO DAILY 01/29/18 01/29/18 Allergies Allergy/AdvReac Type Severity Reaction Status Date / Time No Known Allergies Allergy Verified 10/23/22 09:07 Review of Systems ROS Statement: Those systems with pertinent positive or pertinent negative responses have been documented in the HPI. ROS Other: All systems not noted in ROS Statement are negative. Past Medical History Past Medical History: GERD/Reflux, Hyperlipidemia, Hypertension Additional Past Medical History / Comment(s): urinary incontinence History of Any Multi-Drug Resistant Organisms: None Reported Past Surgical History: Bladder Surgery, Hysterectomy, Orthopedic Surgery, Tonsillectomy Additional Past Surgical History / Comment(s): BLADDER SUSPENSION. LASER OF VARICOSE VEINS. TOTAL RT KNEE. Past Anesthesia/Blood Transfusion Reactions: Motion Sickness Past Psychological History: No Psychological Hx Reported Smoking Status: Never smoker Past Alcohol Use History: None Reported Past Drug Use History: None Reported - Past Family History Sister(s) Family Medical History: Cancer, Deep Vein Thrombosis (DVT) Additional Family Medical History / Comment(s): one sister ca, one had DVT General Exam Limitations: no limitations General appearance: alert, in no apparent distress Head exam: Present: atraumatic Respiratory exam: Present: normal lung sounds bilaterally. Absent: respiratory distress, wheezes, rales, rhonchi, stridor, chest wall tenderness, accessory muscle use Cardiovascular Exam: Present: regular rate GI/Abdominal exam: Present: soft, normal bowel sounds. Absent: distended, tenderness, rigid Rectal exam: Present: normal rectal tone, hemorrhoids. Absent: fecal impaction, mass, tenderness Extremities exam: Present: normal capillary refill. Absent: pedal edema Neurological exam: Present: alert, oriented X3 Psychiatric exam: Present: normal affect, normal mood Skin exam: Present: warm, dry, normal color. Absent: cyanosis, diaphoretic, petechiae, pallor Course Vital Signs 10/23/22 10/23/22 09:04 12:37 Temperature 98.1 F Pulse Rate 94 69 Respiratory 18 17 Rate Blood Pressure 157/93 141/80 O2 Sat by Pulse 100 96 Oximetry Medical Decision Making - Medical Decision Making Hemoglobin and hematocrit is stable. Rectal exam shows no evidence of bleeding hemorrhoids or fissures. Occult blood positive. Instructed to follow-up with Dr. Weeks gastroenterology and primary care doctor next week. Return to the emergency room with any new or concerning symptoms. Vital signs are stable. Case discussed with Dr. Gill Was pt. sent in by a medical professional or institution? @ -No Did you speak to anyone other than the patient for history? @ -No Did you review nursing and triage notes? @ -Yes I agree Were old charts reviewed? @ -No Differential Diagnosis? @ -Differential GI Bleed: Esophageal varices, aortoenteric fistula, Ting-Oliva, gastritis, peptic ulcer disease, diverticulosis, inflammatory bowel disease, hemorrhoids, fissure, colitis, malignancy, Meckels diverticulum, this is not meant to be an all- inclusive list. What testing was considered but not performed? (CT, X-rays, U/S, labs)? Why? @No What meds were considered but not given? Why? @ -No Did you discuss the management of the patient with other professionals? @ -No Did you reconcile home meds? @ -No Was smoking cessation discussed for >3mins.? @ -[none] Was critical care preformed (if so, how long)? @ -No Were there social determinants of health that impacted care today? How? (Homelessness, low income, unemployed, alcoholism, drug addiction, transportation, low edu. Level, literacy, decrease access to med. care, long term, rehab)? @ -None Was there de-escalation of care discussed even if they declined? (Discuss DNR or withdrawal of care, Hospice)? @ -No What co-morbidities impacted this encounter? (DM, HTN, Smoking, COPD, CAD, Cancer, CVA, Hep., AIDS, mental health diagnosis, sleep apnea, morbid obesity)? @ -Hypertension, GERD, hemorrhoids Was patient admitted / discharged? @ -Discharged Undiagnosed new problem with uncertain prognosis? @ -No Drug Therapy requiring intensive monitoring for toxicity (Heparin, Nitro, Insulin, Cardizem)? @ -No Were any procedures done? @ -No Diagnosis/symptom? @ -GI bleed Acute, or Chronic, or Acute on Chronic? @ -Acute Uncomplicated (without systemic symptoms) or Complicated (systemic symptoms)? @ -Uncomplicated Side effects of treatment? @ -[none] Exacerbation, Progression, or Severe Exacerbation] @ -[no] Poses a threat to life or bodily function? @ -[no] - Lab Data Result diagrams: 10/23/22 10:04 10/23/22 10:04 Lab Results 10/23/22 10/23/22 10/23/22 Range/Units 10:04 10:04 10:04 WBC 8.3 (3.8-10.6) k/uL RBC 4.74 (3.80-5.40) m/uL Hgb 14.8 (11.4-16.0) gm/dL Hct 42.0 (34.0-46.0) % MCV 88.5 (80.0-100.0) fL MCH 31.1 (25.0-35.0) pg MCHC 35.2 (31.0-37.0) g/dL RDW 11.8 (11.5-15.5) % Plt Count 221 (150-450) k/uL MPV 8.0 Neutrophils % 76 % Lymphocytes % 16 % Monocytes % 5 % Eosinophils % 1 % Basophils % 0 % Neutrophils # 6.3 (1.3-7.7) k/uL Lymphocytes # 1.4 (1.0-4.8) k/uL Monocytes # 0.4 (0-1.0) k/uL Eosinophils # 0.1 (0-0.7) k/uL Basophils # 0.0 (0-0.2) k/uL PT 10.4 (9.0-12.0) sec INR 1.0 (<1.2) APTT 21.6 L (22.0-30.0) sec Sodium (137-145) mmol/L Potassium (3.5-5.1) mmol/L Chloride (98-107) mmol/L Carbon Dioxide (22-30) mmol/L Anion Gap mmol/L BUN (7-17) mg/dL Creatinine (0.52-1.04) mg/dL Est GFR (CKD-EPI)AfAm (>60 ml/min/1.73 sqM) Est GFR (CKD-EPI)NonAf (>60 ml/min/1.73 sqM) Glucose (74-99) mg/dL Plasma Lactic Acid Taran (0.7-2.0) mmol/L Calcium (8.4-10.2) mg/dL Magnesium (1.6-2.3) mg/dL Total Bilirubin (0.2-1.3) mg/dL AST (14-36) U/L ALT (4-34) U/L Alkaline Phosphatase (38-126) U/L Troponin I (0.000-0.034) ng/mL Total Protein (6.3-8.2) g/dL Albumin (3.5-5.0) g/dL Stool Occult Blood Positive H (Negative) 10/23/22 10/23/22 10/23/22 Range/Units 10:04 10:04 10:04 WBC (3.8-10.6) k/uL RBC (3.80-5.40) m/uL Hgb (11.4-16.0) gm/dL Hct (34.0-46.0) % MCV (80.0-100.0) fL MCH (25.0-35.0) pg MCHC (31.0-37.0) g/dL RDW (11.5-15.5) % Plt Count (150-450) k/uL MPV Neutrophils % % Lymphocytes % % Monocytes % % Eosinophils % % Basophils % % Neutrophils # (1.3-7.7) k/uL Lymphocytes # (1.0-4.8) k/uL Monocytes # (0-1.0) k/uL Eosinophils # (0-0.7) k/uL Basophils # (0-0.2) k/uL PT (9.0-12.0) sec INR (<1.2) APTT (22.0-30.0) sec Sodium 137 (137-145) mmol/L Potassium 4.0 (3.5-5.1) mmol/L Chloride 107 (98-107) mmol/L Carbon Dioxide 25 (22-30) mmol/L Anion Gap 5 mmol/L BUN 14 (7-17) mg/dL Creatinine 0.59 (0.52-1.04) mg/dL Est GFR (CKD-EPI)AfAm >90 (>60 ml/min/1.73 sqM) Est GFR (CKD-EPI)NonAf >90 (>60 ml/min/1.73 sqM) Glucose 107 H (74-99) mg/dL Plasma Lactic Acid Taran 1.2 (0.7-2.0) mmol/L Calcium 9.2 (8.4-10.2) mg/dL Magnesium 1.8 (1.6-2.3) mg/dL Total Bilirubin 0.7 (0.2-1.3) mg/dL AST 23 (14-36) U/L ALT 19 (4-34) U/L Alkaline Phosphatase 54 (38-126) U/L Troponin I <0.012 (0.000-0.034) ng/mL Total Protein 6.5 (6.3-8.2) g/dL Albumin 4.1 (3.5-5.0) g/dL Stool Occult Blood (Negative) Disposition Clinical Impression: GIB (gastrointestinal bleeding) Disposition: HOME SELF-CARE Condition: Good Instructions (If sedation given, give patient instructions): Gastrointestinal Bleeding (ED) Additional Instructions: Follow-up with Dr. Doe the field identification specialist. See your primary care doctor this week. Return to the emergency room with any new or concerning symptoms Is patient prescribed a controlled substance at d/c from ED?: No Referrals: Yoni Schmidt MD [Primary Care Provider] - 1-2 days Giselle Doe MD [STAFF PHYSICIAN] - 1-2 days Time of Disposition: 11:54
[2022-10-23 10:44] LABS: Basophils % (A) 0 %; Eosinophils # (A) 0.1 k/uL (0-0.7); Eosinophils % (A) 1 %; HGB 14.8 gm/dL (11.4-16.0); Lymphocytes # (A) 1.4 k/uL (1.0-4.8); Lymphocytes % (A) 16 %; MCH 31.1 pg (25.0-35.0); MCHC 35.2 g/dL (31.0-37.0); MCV 88.5 fL (80.0-100.0); Monocytes # (A) 0.4 k/uL (0-1.0); Monocytes % (A) 5 %; Neutrophils # (A) 6.3 k/uL (1.3-7.7); Neutrophils % (A) 76 %; Platelet Count 221 k/uL (150-450); RBC 4.74 m/uL (3.80-5.40); RDW 11.8 % (11.5-15.5); WBC 8.3 k/uL (3.8-10.6)
[2022-10-23 10:59] LABS: ALT 19 U/L (4-34); AST 23 U/L (14-36); African American GFR (CKD) >90 (>60 ml/min/1.73 sqM); Albumin 4.1 g/dL (3.5-5.0); Alkaline Phosphatase 54 U/L (38-126); Anion Gap 5 mmol/L; Blood Urea Nitrogen 14 mg/dL (7-17); Calcium 9.2 mg/dL (8.4-10.2); Carbon Dioxide 25 mmol/L (22-30); Chloride 107 mmol/L (98-107); Glucose 107 mg/dL (74-99); Magnesium 1.8 mg/dL (1.6-2.3); Non-African American GFR(CKD) >90 (>60 ml/min/1.73 sqM); Sodium 137 mmol/L (137-145); Total Bilirubin 0.7 mg/dL (0.2-1.3); Total Protein 6.5 g/dL (6.3-8.2)
[2022-10-23 11:00] LABS: Prothrombin Time 10.4 sec (9.0-12.0)
[2022-10-23 11:08] LABS: Partial Thromboplastin Time 21.6 sec (22.0-30.0)
[2022-10-23 12:40] VITALS: BP 141/80; PULSE 69; RESP 17
== END 2022-10-23 12:40 | disposition home or self-care (01) ==
LOC: EC 08:59
DX: K92.2 Gastrointestinal hemorrhage, unspecified (principal); E78.5 Hyperlipidemia, unspecified; I10 Essential (primary) hypertension; Z79.82 Long term (current) use of aspirin; Z79.899 Other long term (current) drug therapy
CPT/HCPCS: 36415; 80053; 82272; 83605; 83735; 84484; 85025; 85610; 85730; 99284

== ENCOUNTER 2022-10-30 08:02 | Day surgery (SDC) | payer MEDICARE ==
[2022-10-25 09:35] VITALS: BMI 30.2
[~2022-10-30 08:02] MED LIST changes: +LIDOCAINE 1% (10MG/ML) FOR IV START INTRADERMA PRN; -LIDOCAINE 1% 20 ML VIAL (10MG/ML) FOR IV START INTRADERMA PRN
[2022-10-30 09:13] VITALS: TEMP 98.6
[2022-10-30] MEDS ORDERED: PROPOFOL 10 MG/ML 20 ML VIAL IV ONE (09:29)
--- NOTE | 2022-10-30 09:43 | P.PCN ---
Date of Procedure: 10/30/22 Procedure(s) Performed: BRIEF HISTORY: Patient is a 67-year-old pleasant female scheduled for an elective colonoscopy as a part of evaluation of recent episode of rectal bleeding happened 2 weeks ago. PROCEDURE PERFORMED: Colonoscopy. PREOPERATIVE DIAGNOSIS: Rectal bleeding IV sedation per Anesthesia. PROCEDURE: After informed consent was obtained, the patient, was brought into the endoscopy unit. IV sedation was administered by Anesthesia under continuous monitoring. Digital rectal examination was normal. Initially the Olympus CF-160 flexible video colonoscope was then inserted in the rectum, gradually advanced into the cecum without any difficulty. Careful examination was performed as the scope was gradually being withdrawn. Ileocecal valve and the appendiceal orifice were visualized and appeared normal. Prep was excellent. Mucosa of the cecum, ascending colon, transverse colon, descending colon, sigmoid colon, and rectum appeared normal. Retroflexion was performed in the rectum and no lesions were seen. The patient tolerated the procedure well. IMPRESSION: Normal-appearing colon from rectum to cecum with no evidence of colorectal neoplasia. RECOMMENDATIONS: Findings of this examination were discussed with the patient as well as a family. She was advised to have a repeat screening colonoscopy in 10 years..
[2022-10-30] MEDS ORDERED: IV FLUID CONTINUATION 1,000 ML IV ONE (09:45)
[2022-10-30 09:51] VITALS: RESP 16
[2022-10-30 10:21] VITALS: BP 137/82; PULSE 70
== END 2022-10-30 10:36 | disposition home or self-care (01) ==
LOC: ORWHC2ENDO 08:02
PROVIDERS: ATTEND Internal Medicine Gastroenterology
DX: K62.5 Hemorrhage of anus and rectum (principal); I10 Essential (primary) hypertension; E78.5 Hyperlipidemia, unspecified; Z79.899 Other long term (current) drug therapy
CPT/HCPCS: 45378; J2704

== ENCOUNTER 2023-05-17 21:43 | Emergency (ER) | payer MEDICARE ==
[2023-05-17 21:48] VITALS: BP 152/78; PULSE 93; RESP 16; TEMP 99.1
[2023-05-17 23:34] LABS: Basophils % (A) 0 %; Eosinophils # (A) 0.2 k/uL (0-0.7); Eosinophils % (A) 2 %; HCT 34.1 % (34.0-46.0); Lymphocytes # (A) 1.1 k/uL (1.0-4.8); Lymphocytes % (A) 10 %; MCV 91.3 fL (80.0-100.0); Mean Platelet Volume 7.7; Monocytes # (A) 0.4 k/uL (0-1.0); Monocytes % (A) 4 %; Neutrophils # (A) 8.7 k/uL (1.3-7.7); Neutrophils % (A) 83 %; Platelet Count 181 k/uL (150-450); RBC 3.74 m/uL (3.80-5.40); WBC 10.6 k/uL (3.8-10.6)
[2023-05-17 23:36] LABS: MCHC 35.1 g/dL (31.0-37.0)
[2023-05-17 23:37] LABS: MCH 31.9 pg (25.0-35.0)
[2023-05-17 23:39] LABS: African American GFR (CKD) >90 (>60 ml/min/1.73 sqM); Anion Gap 9 mmol/L; Blood Urea Nitrogen 14 mg/dL (7-17); Calcium 9.3 mg/dL (8.4-10.2); Carbon Dioxide 22 mmol/L (22-30); Chloride 103 mmol/L (98-107); Glucose 122 mg/dL (74-99); Non-African American GFR(CKD) >90 (>60 ml/min/1.73 sqM); Potassium 4.2 mmol/L (3.5-5.1); Sodium 134 mmol/L (137-145)
--- NOTE | 2023-05-18 01:42 | ED ---
General Adult HPI - General Source: patient, RN notes reviewed Mode of arrival: ambulatory Limitations: no limitations <Ngoc Pham - Last Filed: 05/18/23 01:41> <Marnie Galvan - Last Filed: 05/18/23 07:59> - General Chief complaint: Animal Bite Stated complaint: Cat scratch Time Seen by Provider: 05/17/23 23:37 - History of Present Illness Initial comments: 68-year-old female with past medical history of hypertension who presents to the emergency department with pain and redness to her left arm. States that she was scratched on the left wrist last night by a friend's cat. She did develop red streaking. Earlier today the patient went to an urgent care and was given a shot of antibiotics and placed on Augmentin. She was told that if she had extension of the swelling and redness that she needed to go to the hospital. The swelling was previously up to her elbow and it has extended somewhat more proximal. She does have a palpable lymph node in her left armpit. She does not know if the patient is up-to-date on vaccines however states that it is not a feral cat. She denies being bit. No fevers. She is not a diabetic. No other alleviating, precipitating or modifying factors (Marnie Galvan) - Related Data Home Medications Medication Instructions Recorded Confirmed Multivitamins, Thera [Multivitamin] 1 tab PO DAILY 02/07/16 10/30/22 Simvastatin [Zocor] 40 mg PO HS 02/07/16 10/30/22 lisinopriL [Prinivil] 10 mg PO DAILY 02/07/16 10/30/22 Oxybutynin Xl [Ditropan Xl] 5 mg PO DAILY 01/29/18 10/30/22 Vitamin B Complex 1 cap PO DAILY 01/29/18 10/30/22 Biotin 1 dose PO DAILY 10/25/22 10/30/22 Ibuprofen [Motrin Ib] 200 mg PO DIRECTED PRN 10/25/22 10/30/22 Previous Rx's Medication Instructions Recorded Azithromycin [Zithromax Z Pack] 1 tab PO DAILY #4 tab 05/18/23 Allergies Allergy/AdvReac Type Severity Reaction Status Date / Time No Known Allergies Allergy Verified 10/30/22 08:53 Review of Systems ROS Other: All systems not noted in ROS Statement are negative. <Ngoc Pham - Last Filed: 05/18/23 01:41> ROS Other: All systems not noted in ROS Statement are negative. <MandyMarnie Velasquez - Last Filed: 05/18/23 07:59> ROS Statement: Those systems with pertinent positive or pertinent negative responses have been documented in the HPI. Past Medical History Past Medical History: GERD/Reflux, Hyperlipidemia, Hypertension, Osteoarthritis (OA) Additional Past Medical History / Comment(s): OAB., states past hx gerd, states diarrhea with blood in stool., loss of appetite., hip pain. History of Any Multi-Drug Resistant Organisms: None Reported Past Surgical History: Bladder Surgery, Hysterectomy, Orthopedic Surgery, Tonsillectomy Additional Past Surgical History / Comment(s): BLADDER SUSPENSION. LASER VARICOSE VEINS. , KAMILLE TOTAL KNEES., COLONOSCOPIES. Past Anesthesia/Blood Transfusion Reactions: No Reported Reaction, Motion Sickness Past Psychological History: No Psychological Hx Reported Smoking Status: Former smoker Past Alcohol Use History: None Reported Past Drug Use History: None Reported - Past Family History Sister(s) Family Medical History: Cancer, Deep Vein Thrombosis (DVT) Additional Family Medical History / Comment(s): BREAST CANCER., DVT <VeroNgoc - Last Filed: 05/18/23 01:41> General Exam Limitations: no limitations <VeroNgoc - Last Filed: 05/18/23 01:41> General appearance: alert, in no apparent distress Head exam: Present: atraumatic, normocephalic, normal inspection Extremities exam: Present: other (Patient has erythematous streaking up the inner aspect of the left arm. It extends to the armpit. She does have palpable lymph nodes. There is a small skin abrasion noted to the left anterior wrist. Not draining. Swelling to the anterior wrist and carpal canal. No abscess. No flexor tensosyno) Neurological exam: Present: alert, oriented X3, CN II-XII intact Psychiatric exam: Present: normal affect, normal mood <Marnie Galvan Eva - Last Filed: 05/18/23 07:59> Course <VeroNgoc - Last Filed: 05/18/23 01:41> Vital Signs 05/17/23 21:44 Temperature 99.1 F Pulse Rate 93 Respiratory 16 Rate Blood Pressure 152/78 O2 Sat by Pulse 97 Oximetry - Reevaluation(s) Reevaluation #1: 05/18/23 23:40 patient reevaluated. Patient and patient has been verbalizing that they would like a physician to perform a history and physical exam for the chief complaint. (Ngoc Pham) Medical Decision Making - Lab Data Result diagrams: 05/17/23 23:15 05/17/23 23:15 <Ngoc Pham - Last Filed: 05/18/23 01:41> - Lab Data Result diagrams: 05/17/23 23:15 05/17/23 23:15 <Marnie Galvan - Last Filed: 05/18/23 07:59> - Medical Decision Making Was pt. sent in by a medical professional or institution ([facility], [facility], urgent care, hospital, or long-term...) When possible be specific @ -No Did you speak to anyone other than the patient for history (EMS, parent, family, police, friend...)? What history was obtained from this source @ -No Did you review nursing and triage notes (agree or disagree)? Why? @ -I reviewed and agree with nursing and triage notes Were old charts reviewed (outside hosp., previous admission, EMS record, old EKG, old radiological studies, urgent care reports/EKG's, long-term records)? Report findings @ -No old charts were reviewed Differential Diagnosis (chest pain, altered mental status, abdominal pain women, abdominal pain men, vaginal bleeding, weakness, fever, dyspnea, syncope, headache, dizziness, GI bleed, back pain, seizure, CVA, palpatations, mental health, musculoskeletal)? @ -Cellulitis, abscess, flexor tenoynovitis, cat scratch disease EKG interpreted by me (3pts min.). @ -Not completed X-rays interpreted by me (1pt min.). @ -None done CT interpreted by me (1pt min.). @ -None done U/S interpreted by me (1pt. min.). @ -None done What testing was considered but not performed or refused? (CT, X-rays, U/S, labs)? Why? @ -None What meds were considered but not given or refused? Why? @ -None Did you discuss the management of the patient with other professionals (professionals i.e. , PA, [facility], lab, RT, psych nurse, social science instructor, special education assistant, teacher, fisheries officer, case maker)? Give summary @ -No Was smoking cessation discussed for >3mins.? @ -No Was critical care preformed (if so, how long)? @ -No Were there social determinants of health that impacted care today? How? (Homelessness, low income, unemployed, alcoholism, drug addiction, transportation, low edu. Level, literacy, decrease access to med. care, fci, rehab)? @ -No Was there de-escalation of care discussed even if they declined (Discuss DNR or withdrawal of care, Hospice)? DNR status @ -No What co-morbidities impacted this encounter? (DM, HTN, Smoking, COPD, CAD, Cancer, CVA, ARF, Chemo, Hep., AIDS, mental health diagnosis, sleep apnea, morbid obesity)? @ -None Was patient admitted / discharged? Hospital course, mention meds given and rout e, prescriptions, significant lab abnormalities, going to OR and other pertinent info. @ -Upon arrival patient was placed into room 11. A thorough history and physical exam was performed. Patient does have symptoms consistent with cat scratch disease. She is on Augmentin however I feel that the patient would be better treated with azithromycin. Patient is to rest and elevate the extremity. She may continue taking the Augmentin as well. Follow up with her primary care doctor for wound reevaluation. Return should her symptoms not improve in 24-48 hours. Patient was agreeable with this plan. She was discharged in stable condition Undiagnosed new problem with uncertain prognosis? @ -Yes Drug Therapy requiring intensive monitoring for toxicity (Heparin, Nitro, Insulin, Cardizem)? @ -No Were any procedures done? @ -No Diagnosis/symptom? @ -Acute lymphatic streaking left arm, acute cat scratch, cat scratch syndrome Acute, or Chronic, or Acute on Chronic? @ -Acute Uncomplicated (without systemic symptoms) or Complicated (systemic symptoms)? @ -Complicated Side effects of treatment? @ -No Exacerbation, Progression, or Severe Exacerbation? @ -No Poses a threat to life or bodily function? How? (Chest pain, USA, AL, pneumonia, PE, COPD, DKA, ARF, appy, cholecystitis, CVA, Diverticulitis, Homicidal, Suicidal, threat to staff... and all critical care pts) @ -No (Marnie Galvan) - Lab Data Lab Results 05/17/23 05/17/23 Range/Units 23:15 23:15 WBC 10.6 (3.8-10.6) k/uL RBC 3.74 L (3.80-5.40) m/uL Hgb 12.0 (11.4-16.0) gm/dL Hct 34.1 (34.0-46.0) % MCV 91.3 (80.0-100.0) fL MCH 31.9 (25.0-35.0) pg MCHC 35.1 (31.0-37.0) g/dL RDW 12.0 (11.5-15.5) % Plt Count 181 (150-450) k/uL MPV 7.7 Neutrophils % 83 % Lymphocytes % 10 % Monocytes % 4 % Eosinophils % 2 % Basophils % 0 % Neutrophils # 8.7 H (1.3-7.7) k/uL Lymphocytes # 1.1 (1.0-4.8) k/uL Monocytes # 0.4 (0-1.0) k/uL Eosinophils # 0.2 (0-0.7) k/uL Basophils # 0.0 (0-0.2) k/uL Sodium 134 L (137-145) mmol/L Potassium 4.2 (3.5-5.1) mmol/L Chloride 103 (98-107) mmol/L Carbon Dioxide 22 (22-30) mmol/L Anion Gap 9 mmol/L BUN 14 (7-17) mg/dL Creatinine 0.51 L (0.52-1.04) mg/dL Est GFR (CKD-EPI)AfAm >90 (>60 ml/min/1.73 sqM) Est GFR (CKD-EPI)NonAf >90 (>60 ml/min/1.73 sqM) Glucose 122 H (74-99) mg/dL Calcium 9.3 (8.4-10.2) mg/dL Disposition <Ngoc Pham - Last Filed: 05/18/23 01:41> Is patient prescribed a controlled substance at d/c from ED?: No Time of Disposition: 02:20 <Damer,Marnie A - Last Filed: 05/18/23 07:59> Clinical Impression: Cat scratch of hand Disposition: HOME SELF-CARE Condition: Stable Instructions (If sedation given, give patient instructions): Animal Bite (ED), Cat Scratch Disease (ED) Additional Instructions: Please take BOTH antibiotics as directed. Follow up with your primary care doctor for reevaluation. Should your symptoms not improve within 24-48 hours, return to the emergency department for admission Prescriptions: Azithromycin [Zithromax Z Pack] 1 tab PO DAILY #4 tab Referrals: Yoni Schmidt MD [Primary Care Provider] - 1-2 days
[2023-05-18] MEDS ORDERED: AZITHROMYCIN 500 MG TAB PO STA (02:16)
== END 2023-05-18 02:31 | disposition home or self-care (01) ==
LOC: EC 21:43
DX: S60.812A Abrasion of left wrist, initial encounter (principal); A28.1 Cat-scratch disease; R59.9 Enlarged lymph nodes, unspecified; I10 Essential (primary) hypertension; E78.5 Hyperlipidemia, unspecified; Z79.899 Other long term (current) drug therapy; Z87.891 Personal history of nicotine dependence; W55.03XA Scratched by cat, initial encounter
CPT/HCPCS: 36415; 80048; 85025; 87040; 99283

== ENCOUNTER → 2023-05-22 | Outpatient (CLI) | payer MEDICARE ==
--- NOTE | 2023-05-23 08:04 | MM ---
Reason for Exam: Screening (asymptomatic). Last screening mammogram was performed 12 month(s) ago. Patient History: Menarche at age 10. First Full-Term at age 25. Left ovary removed at age 49. Hysterectomy at age 49. Postmenopausal. Estrogen for 4 months from age 64 until age 64. Sister had breast cancer, age 40. Risk Values: Criss 5 year model risk: 3.4%. NCI Lifetime model risk: 9.7%. Prior Study Comparison: 04/29/2020 Bilateral Screening Mammogram, [facility]. 05/16/2021 Bilateral Screening Mammogram, [facility]. 05/21/2022 Bilateral MG 3D screening mammo w/cad, [facility]. Tissue Density: The breast tissue is heterogeneously dense. This may lower the sensitivity of mammography. Findings: Analyzed By CAD. There is no suspicious group of microcalcifications or new suspicious mass in either breast. Benign round calcifications within both breasts. Overall Assessment: Benign, BI-RAD 2 Management: Screening Mammogram of both breasts in 1 year. A clinical breast exam by your physician is recommended on an annual basis and results should be correlated with mammographic findings. Note on Criss scores and lifetime risk: 1. A Criss score greater than 3% is considered moderate risk. If this is the case, consider specialist referral to assess eligibility for a risk reducing agent. If overall lifetime risk for the development of breast cancer is 20% or higher, the patient may qualify for future screening with alternating mammogram and breast MRI. Electronically signed and approved by: Noble Moore D.O.
== END | disposition home or self-care (01) ==
LOC: RADMAMWWP 08:07
PROVIDERS: ATTEND Family Medicine
DX: Z12.31 Encounter for screening mammogram for malignant neoplasm of breast (principal); Z78.0 Asymptomatic menopausal state; Z80.3 Family history of malignant neoplasm of breast
CPT/HCPCS: 77063; 77067

== ENCOUNTER → 2024-04-15 | Outpatient (CLI) | payer MEDICARE ==
--- NOTE | 2024-04-15 08:55 | MM ---
Reason for Exam: Clinical finding. Last screening mammogram was performed 11 month(s) ago. Indicated Problems: Pain of the left side (Global) for 3 Week(s). Patient History: Menarche at age 10. First Full-Term at age 25. Left ovary removed at age 49. Hysterectomy at age 49. Postmenopausal. Estrogen for 4 months from age 64 until age 64. Sister had breast cancer, age 40. Risk Values: Criss 5 year model risk: 3.4%. NCI Lifetime model risk: 9.3%. Prior Study Comparison: 01/27/2015 Screening Mammogram, [facility]. 01/31/2016 Screening Mammogram, [facility]. 03/04/2017 Bilateral Screening Mammogram, [facility]. 03/20/2017 Left Diagnostic Mammogram, [facility]. 09/09/2017 Left Diagnostic Mammogram, [facility]. 04/23/2018 Bilateral Screening Mammogram, [facility]. 05/12/2019 Bilateral Diagnostic Mammogram, [facility]. 04/29/2020 Bilateral Screening Mammogram, [facility]. 05/16/2021 Bilateral Screening Mammogram, [facility]. 05/21/2022 Bilateral MG 3D screening mammo w/cad, [facility]. 07/31/2022 Left US breast LT, [facility]. 05/22/2023 Bilateral MG 3D screening mammo w/cad, [facility]. Tissue Density: The breasts are heterogeneously dense, which may obscure small masses. Findings: Analyzed By CAD. Areas of bilateral asymmetric density remain unchanged. Multiple marker placed along the lateral aspect of the anterior left breast at the patient's reported scaly patch which was recently frozen. No significant change from prior exams. Overall Assessment: Incomplete: need additional imaging evaluation, BI-RAD 0 Management: Diagnostic Breast Ultrasound of the left breast. As ordered for breast pain. Electronically signed and approved by: Jeane Lawson M.D. Radiologist
--- NOTE | 2024-04-15 09:16 | USB ---
Reason for Exam: Clinical finding. Patient History: Menarche at age 10. First Full-Term at age 25. Left ovary removed at age 49. Hysterectomy at age 49. Postmenopausal. Estrogen for 4 months from age 64 until age 64. Sister had breast cancer, age 40. Risk Values: Criss 5 year model risk: 3.4%. NCI Lifetime model risk: 9.3%. Technique: Method: Whole Breast Handheld. Prior Study Comparison: 05/16/2021 Bilateral Screening Mammogram, [facility]. 05/21/2022 Bilateral MG 3D screening mammo w/cad, [facility]. 05/22/2023 Bilateral MG 3D screening mammo w/cad, [facility]. Findings: The whole breast of the left breast, the axilla of the left breast and the retroareolar of the left breast were scanned. A complete US of all four quadrants of the breast, axilla, and retro-areolar region were reviewed. No solid or cystic masses are identified. Overall Assessment: Negative, BI-RAD 1 Management: Screening Mammogram of both breasts in 1 year. Further clinical management of patient's breast pain. A clinical breast exam by your physician is recommended on an annual basis and results should be correlated with mammographic findings. This exam should not preclude additional follow-up of suspicious palpable abnormalities. Results were given to the patient verbally at the time of exam. Note on Criss scores and lifetime risk: 1. A Criss score greater than 3% is considered moderate risk. If this is the case, consider specialist referral to assess eligibility for a risk reducing agent. 2. If overall lifetime risk for the development of breast cancer is 20% or higher, the patient may qualify for future screening with alternating mammogram and breast MRI. Electronically signed and approved by: Jeane Lawson M.D. Radiologist
== END | disposition home or self-care (01) ==
LOC: RADMAMWWP 08:23
PROVIDERS: ATTEND Family Medicine
DX: R92.333 Mammographic heterogeneous density, bilateral breasts (principal); N63.10 Unspecified lump in the right breast, unspecified quadrant; N63.20 Unspecified lump in the left breast, unspecified quadrant; Z78.0 Asymptomatic menopausal state; Z80.3 Family history of malignant neoplasm of breast
CPT/HCPCS: 77066; 76641; G0279; 77062

== ENCOUNTER → 2024-12-17 | Outpatient (CLI) | payer MEDICARE ==
[2024-12-17 09:16] VITALS: BP 175/97; PULSE 97; RESP 16; TEMP 98.3
--- NOTE | 2024-12-17 09:47 | P.GSCN ---
History of Present Illness Consult date: 12/17/24 Requesting physician: Yoni Schmidt History of present illness: Ariela is a 69 year old female seen in consultation for DR. Mccain regarding a left breast scaling. She had a bilateral mammogrma on left breast ultrasound in April 2024 which was BIRAD 1. She is complaining of pain in her left breast. She was told years ago she had lumpy breast. The scaly lesion on the side was frozen about 1 year ago. It is gone at this time. She notices a dull aching pain in her left breast (no pain in the right breast) is the entire breast and it is constant for the past year. She does not feel any new lumps masses or nodules of concern in either breast. She has never had any surgery on her breast. She did have a scaling skin lesion frozen on the left breast the pain was present prior to that area being frozen. She is not complaining of any nipple discharge or skin changes. She has not had any recent infection or trauma to either breast. She has never had any surgery on her breast. She thinks the pain started after she got her COVID vaccines on the left side. melanoma left ankle summer 2023 5-year risk of breast cancer: 3.4% NCI lifetime risk 9.3% We have discussed chemoprophylaxis and she has declined. caffiene: decaff 2 cups/day nicotine: never smoker BCP: used for about 30 years hormone: none chocolate: rare Note Dr. Schmidt 09-25-24 reviewed Family History: patient: melanoma sister: breast cancer father: prostate Hormonal History: menarche: 10 , breast fed: no, age at first : 29 menopause: hysterectomy left on ovary, ? age hysterectomy Surgical History: hysterectomy not for cancer bladder suspension bilateral knee replacements Medical History: anxiety Social History: nicotine: never smoker alcoholL none drugs: none Review of Systems - Constitutional Denies fever, Denies weight loss - EENT Eyes: denies blurred vision Ears: bilateral: decreased hearing (hearing aids), deny: tinnitus Ears, nose, mouth and throat: Denies dysphagia - Breasts bilateral: as per HPI - Cardiovascular Reports shortness of breath, Denies chest pain - Respiratory Reports cough - Gastrointestinal Reports as per HPI - Genitourinary Genitourinary: Reports as per HPI, Denies dysuria Menstruation: Reports post hysterectomy - Musculoskeletal Reports as per HPI - Integumentary Integumentary Comment(s): melanoma follows with dermatology Reports as per HPI - Neurological Denies headaches, Denies syncope - Psychiatric Reports as per HPI, Reports anxiety - Endocrine Reports weight change - Allergic/Immunologic Reports as per HPI, Reports seasonal allergies Past Medical History Past Medical History: GERD/Reflux, Hyperlipidemia, Hypertension, Osteoarthritis (OA) Additional Past Medical History / Comment(s): OAB., states past hx gerd, states diarrhea with blood in stool., loss of appetite., hip pain. History of Any Multi-Drug Resistant Organisms: None Reported Past Surgical History: Bladder Surgery, Hysterectomy, Orthopedic Surgery, Tonsillectomy Additional Past Surgical History / Comment(s): BLADDER SUSPENSION. LASER VARICOSE VEINS. , KAMILLE TOTAL KNEES., COLONOSCOPIES. Past Anesthesia/Blood Transfusion Reactions: No Reported Reaction, Motion Sickn ess Past Psychological History: No Psychological Hx Reported Smoking Status: Former smoker Past Alcohol Use History: None Reported Additional Past Alcohol Use History / Comment(s): SMOKED FEW YEARS, SOCIALLY IN PAST. (20 YRS AGO) Past Drug Use History: None Reported - Past Family History Sister(s) Family Medical History: Cancer, Deep Vein Thrombosis (DVT) Additional Family Medical History / Comment(s): BREAST CANCER., DVT Medications and Allergies Home Medications Medication Instructions Recorded Confirmed Type Multivitamins, Thera [Multivitamin] 1 tab PO DAILY 02/07/16 12/17/24 History Simvastatin [Zocor] 40 mg PO HS 02/07/16 12/17/24 History lisinopriL [Prinivil] 10 mg PO DAILY 02/07/16 12/17/24 History Oxybutynin Xl [Ditropan Xl] 5 mg PO DAILY 01/29/18 12/17/24 History Vitamin B Complex 1 cap PO DAILY 01/29/18 12/17/24 History Biotin 1 dose PO DAILY 10/25/22 12/17/24 History Ibuprofen [Motrin Ib] 200 mg PO DIRECTED PRN 10/25/22 12/17/24 History Allergies Allergy/AdvReac Type Severity Reaction Status Date / Time No Known Allergies Allergy Verified 12/17/24 09:13 Surgical - Exam Vital Signs Temp Pulse Resp BP Pulse Ox 98.3 F 97 16 175/97 95 12/17/24 09:14 12/17/24 09:14 12/17/24 09:14 12/17/24 09:14 12/17/24 09:14 - General no distress - Eyes normal ocular movement - Neck trachea midline - Respiratory normal respiratory effort, clear to auscultation - Cardiovascular Rhythm: regular Heart Sounds: normal: S1, S2 - Abdomen Abdomen: soft, non tender, no guarding, no rigid, no rebound - Integumentary normal turgor - Neurologic no disoriented, no combative - Musculoskeletal normal gait, normal posture - Psychiatric oriented to time, oriented to person, oriented to place, speech is normal, memory intact Breast Exam: BRA: 36D Inspection: bilateral grade 2/3 ptosis palpation: right: Multi positional exam fibrocystic changes no dominant masses or nodules of concern Right axilla: No adenopathy of concern Left breast: Multi positional exam fibrocystic changes no discrete dominant masses or nodules of concern, the tenderness appears to be emanating from the left chest pectoralis muscle rather than the breast itself Left axilla: No adenopathy of concern Results Bilateral mammogram April 2024 and left breast ultrasound 2023 benign BI-RADS 1 Assessment and Plan Assessment: Impression: Left breast mastodynia of uncertain etiology Plan: The left breast discomfort may be emanating from the chest wall would recommend a CT scan of the left chest to further evaluate the left chest wall At this time there is nothing radiographically or on physical exam of the breast themselves which would warrant interventional biopsy To further evaluate the breast I would recommend bilateral breast MRI Patient to follow-up after CT scan of the chest and breast MRI To have Dr. Schmidt evaluate to be sure this is not cardiac in nature NSAID as needed primrose oil bilateral mammogram in April 2025 with appointment CC: Dr. Schmidt
== END ==
LOC: WWCWWP 08:52
PROVIDERS: ATTEND Surgery
DX: Z12.31 Encounter for screening mammogram for malignant neoplasm of breast (principal); N64.4 Mastodynia; Z80.3 Family history of malignant neoplasm of breast

== ENCOUNTER → 2025-01-18 | Outpatient (CLI) | payer MEDICARE ==
[2025-01-18 12:49] LABS: African American GFR (CKD) >90 (>60 ml/min/1.73 sqM); Blood Urea Nitrogen 16 mg/dL (7-17); Non-African American GFR(CKD) >90 (>60 ml/min/1.73 sqM)
--- NOTE | 2025-01-18 13:18 | CT ---
EXAMINATION TYPE: CT chest w con CT DLP: 400.4 mGycm, Automated exposure control for dose reduction was used. DATE OF EXAM: 01/18/2025 1:11 PM COMPARISON: Chest radiograph 05/03/2017 CLINICAL INDICATION:Female, 69 years old with history of N64.4 MASTODYNIAN; PHH, MASTODYNIA TECHNIQUE: Multiple axial images were obtained through the chest following the administration of 100 cc of Isovue 300. . Coronal and sagittal reformats reviewed. FINDINGS: LUNGS/ PLEURA: No pleural effusion, pneumothorax, or focal consolidation. Minimal dependent right low er lobe subsegmental atelectasis. No suspicious pulmonary nodule or mass. AIRWAY: Patent and unremarkable.. HEART: Size within normal limits.No pericardial effusion. No significant coronary artery calcificatio ns. MEDIASTINUM: No evidence of adenopathy. VASCULATURE: No aortic aneurysm. Four-vessel aortic arch. Minimal atherosclerotic calcification of t he aorta and its branches. MUSCULOSKELETAL: No acute osseous abnormalities. No aggressive osseous lesion. SOFT TISSUES/LYMPH NODES: Unremarkable. No axillary adenopathy. LOWER NECK: No significant findings. UPPER ABDOMEN: Left hepatic lobe 2.8 cm cyst. Small hiatal hernia. IMPRESSION: No acute thoracic process. No CT evidence for abnormality corresponding to patient's symptomology. [facility], , 01/18/2025 1:15 PM
== END | disposition home or self-care (01) ==
LOC: RADCTMAIN 11:52
PROVIDERS: ATTEND Surgery
DX: N64.4 Mastodynia (principal)
CPT/HCPCS: 82565; 84520; 71260; 36415; Q9967

== ENCOUNTER → 2025-02-04 | Outpatient (CLI) | payer MEDICARE ==
[2025-02-04 10:58] VITALS: BP 151/78; PULSE 95; RESP 17; TEMP 98
--- NOTE | 2025-02-04 11:21 | P.PN ---
Subjective Progress Note Date: 02/04/25 Principal diagnosis: chest/left breast pain Yoni Schmidt History of present illness: Ariela is a 69 year old female seen in consultation for DR. Mccain regarding a left breast scaling. She had a bilateral mammogram on left breast ultrasound in April 2024 which was BIRAD 1. She is complaining of pain in her left breast. She was told years ago she had lumpy breast. The scaly lesion on the side was frozen about 1 year ago. It is gone at this time. She notices a dull aching pain in her left breast (no pain in the right breast) is the entire breast and it is constant for the past year. She does not feel any new lumps masses or nodules of concern in either breast. She has never had any surgery on her breast. She did have a scaling skin lesion frozen on the left breast the pain was present prior to that area being frozen. She is not complaining of any nipple discharge or skin changes. She has not had any recent infection or trauma to either breast. She has never had any surgery on her breast. She thinks the pain started after she got her COVID vaccines on the left side. melanoma left ankle summer 2023 5-year risk of breast cancer: 3.4% NCI lifetime risk 9.3% We have discussed chemoprophylaxis and she has declined. CT scan for chest wall discomfort done on 01-18-25 no lesions of concern noted, this was personally interpreted She has persistent left upper quadrant breast discomfort it is a 4 out of 10 and it is constant, it is aching and sharp in nature, it does not affect her daily living but it concerns her it has been constant for about 1 year She is using ibuprofen every other day with minimal results MRI of the breast declined by insurance caffiene: decaff 2 cups/day nicotine: never smoker BCP: used for about 30 years hormone: none chocolate: rare Note Dr. Schmidt 09-25-24 reviewed Family History: patient: melanoma sister: breast cancer father: prostate Hormonal History: menarche: 10 , breast fed: no, age at first : 29 menopause: hysterectomy left on ovary, ? age hysterectomy Surgical History: hysterectomy not for cancer bladder suspension bilateral knee replacements Medical History: anxiety Social History: nicotine: never smoker alcoholL none drugs: none Review of Systems - Constitutional Denies fever, Denies weight loss - EENT Eyes: denies blurred vision Ears: bilateral: decreased hearing (hearing aids), deny: tinnitus Ears, nose, mouth and throat: Denies dysphagia - Breasts bilateral: as per HPI - Cardiovascular Reports shortness of breath, Denies chest pain - Respiratory Reports cough - Gastrointestinal Reports as per HPI - Genitourinary Genitourinary: Reports as per HPI, Denies dysuria Menstruation: Reports post hysterectomy - Musculoskeletal Reports as per HPI - Integumentary Integumentary Comment(s): melanoma follows with dermatology Reports as per HPI - Neurological Denies headaches, Denies syncope - Psychiatric Reports as per HPI, Reports anxiety - Endocrine Reports weight change - Allergic/Immunologic Reports as per HPI, Reports seasonal allergies Past Medical History Past Medical History: GERD/Reflux, Hyperlipidemia, Hypertension, Osteoarthritis (OA) Additional Past Medical History / Comment(s): OAB., states past hx gerd, states diarrhea with blood in stool., loss of appetite., hip pain. History of Any Multi-Drug Resistant Organisms: None Reported Past Surgical History: Bladder Surgery, Hysterectomy, Orthopedic Surgery, Tonsillectomy Additional Past Surgical History / Comment(s): BLADDER SUSPENSION. LASER VARICOSE VEINS. , [place] TOTAL KNEES., COLONOSCOPIES. Past Anesthesia/Blood Transfusion Reactions: No Reported Reaction, Motion Sickness Past Psychological History: No Psychological Hx Reported Smoking Status: Former smoker Past Alcohol Use History: None Reported Additional Past Alcohol Use History / Comment(s): SMOKED FEW YEARS, SOCIALLY IN PAST. (20 YRS AGO) Past Drug Use History: None Reported - Past Family History Sister(s) Family Medical History: Cancer, Deep Vein Thrombosis (DVT) Additional Family Medical History / Comment(s): BREAST CANCER., DVT Medications and Allergies Home Medications Medication Instructions Recorded Confirmed Type Multivitamins, Thera [Multivitamin] 1 tab PO DAILY 02/07/16 12/17/24 History Simvastatin [Zocor] 40 mg PO HS 02/07/16 12/17/24 History lisinopriL [Prinivil] 10 mg PO DAILY 02/07/16 12/17/24 History Oxybutynin Xl [Ditropan Xl] 5 mg PO DAILY 01/29/18 12/17/24 History Vitamin B Complex 1 cap PO DAILY 01/29/18 12/17/24 History Biotin 1 dose PO DAILY 10/25/22 12/17/24 History Ibuprofen [Motrin Ib] 200 mg PO DIRECTED PRN 10/25/22 12/17/24 History Allergies Allergy/AdvReac Type Severity Reaction Status Date / Time No Known Allergies Allergy Verified 12/17/24 09:13 Objective - Vital Signs Vital signs: Vital Signs Temp 98 F 02/04/25 10:56 Pulse 95 02/04/25 10:56 Resp 17 02/04/25 10:56 BP 151/78 02/04/25 10:56 Pulse Ox 95 02/04/25 10:56 FiO2 Intake & Output 02/03/25 02/04/25 02/04/25 18:59 06:59 18:59 Weight 89.811 kg - Constitutional General appearance: Present: cooperative - EENT Eyes: Present: EOMI ENT: Present: hearing grossly normal - Neck Neck: Present: normal ROM - Respiratory Respiratory: bilateral: CTA - Cardiovascular Rhythm: regular Heart sounds: normal: S1, S2 - Integumentary Integumentary: Present: normal turgor - Musculoskeletal Musculoskeletal: Present: gait normal - Psychiatric Psychiatric: Present: A&O x's 3, appropriate affect, intact judgment & insight - Additional findings Additional findings: Breast Exam: BRA: 36D Inspection: bilateral grade 2/3 ptosis palpation: right: Multi positional exam fibrocystic changes no dominant masses or nodules of concern Right axilla: No adenopathy of concern Left breast: Multi positional exam fibrocystic changes no discrete dominant masses or nodules of concern, the tenderness appears today to be emanating from the upper outer quadrant of the left breast more so than the left chest wall Left axilla: No adenopathy of concern Assessment and Plan Assessment: Impression: Left breast mastodynia of uncertain etiology CT scan 01-18-25 no specific lesions of concern MRI requested but denied by insurance Plan: bilateral mammogram and left breast ultrasound at this time with follow up after this primrose oil lifestyle modification stop coffee At this time there is nothing radiographically or on physical exam of the breast themselves which would warrant interventional biopsy To further evaluate the breast I would again recommend bilateral breast MRI To have Dr. Schmidt evaluate to be sure this is not cardiac in nature/ consider cardiac evaluation NSAID as needed primrose oil CC: Dr. Schmidt
== END ==
LOC: WWCWWP 10:50
PROVIDERS: ATTEND Surgery
DX: N64.4 Mastodynia (principal); Z87.891 Personal history of nicotine dependence

== ENCOUNTER → 2025-03-05 | Outpatient (CLI) | payer MEDICARE ==
--- NOTE | 2025-03-05 12:07 | MM ---
Reason for Exam: Clinical finding. Last screening mammogram was performed 10 month(s) ago. Indicated Problems: Pain of the left side (Global) for 1 Year(s). Patient History: Menarche at age 10. First Full-Term at age 25. Left ovary removed at age 49. Hysterectomy at age 49. Postmenopausal. Estrogen for 4 months from age 64 until age 64. Sister had breast cancer, age 40. Risk Values: Criss 5 year model risk: 3.5%. NCI Lifetime model risk: 8.8%. Prior Study Comparison: 01/27/2015 Screening Mammogram, [facility]. 01/31/2016 Screening Mammogram, [facility]. 03/04/2017 Bilateral Screening Mammogram, [facility]. 03/20/2017 Left Diagnostic Mammogram, [facility]. 09/09/2017 Left Diagnostic Mammogram, [facility]. 04/23/2018 Bilateral Screening Mammogram, [facility]. 05/12/2019 Bilateral Diagnostic Mammogram, [facility]. 04/29/2020 Bilateral Screening Mammogram, [facility]. 05/16/2021 Bilateral Screening Mammogram, [facility]. 05/21/2022 Bilateral MG 3D screening mammo w/cad, [facility]. 07/31/2022 Left US breast LT, [facility]. 05/22/2023 Bilateral MG 3D screening mammo w/cad, [facility]. 04/15/2024 Bilateral MG 3D diag mammo w/cad [facility], [facility]. 04/15/2024 Left US breast LT, [facility]. Tissue Density: The breasts are heterogeneously dense, which may obscure small masses. Findings: Analyzed By CAD. No finding to correlate with patient's pain. Overall Assessment: Incomplete: need additional imaging evaluation, BI-RAD 0 Management: Diagnostic Breast Ultrasound of the left breast. Results were given to the patient verbally at the time of exam. Patient should continue monthly self-breast exams. A clinical breast exam by your physician is recommended on an annual basis. This exam should not preclude additional follow-up of suspicious palpable abnormalities. Note on Criss scores and lifetime risk: 1. A Criss score greater than 3% is considered moderate risk. If this is the case, consider specialist referral to assess eligibility for a risk reducing agent. 2. If overall lifetime risk for the development of breast cancer is 20% or higher, the patient may qualify for future screening with alternating mammogram and breast MRI. [facility], , 03/05/2025 12:05 PM. Electronically signed and approved by: Freddie Doshi DO
--- NOTE | 2025-03-05 12:40 | USB ---
Reason for Exam: Clinical finding. Patient History: Menarche at age 10. First Full-Term at age 25. Left ovary removed at age 49. Hysterectomy at age 49. Postmenopausal. Estrogen for 4 months from age 64 until age 64. Sister had breast cancer, age 40. Risk Values: Criss 5 year model risk: 3.5%. NCI Lifetime model risk: 8.8%. Technique: Method: Targeted. Prior Study Comparison: 05/21/2022 Bilateral MG 3D screening mammo w/cad, [facility]. 05/22/2023 Bilateral MG 3D screening mammo w/cad, [facility]. 04/15/2024 Bilateral MG 3D diag mammo w/cad [place], [facility]. 04/15/2024 Left US breast LT, [facility]. Findings: The lateral section of the breast of the left breast, the axilla of the left breast and the retroareolar of the left breast were scanned. Technique utilized:US breast limited LT Image; Ultrasound imaging of: Area of pain, retroareolar region and axilla. No evidence for organizing fluid collection or mass. No finding to correlate with patient's pain. Overall Assessment: Negative, BI-RAD 1 Management: Screening Mammogram of both breasts in 1 year. A clinical breast exam by your physician is recommended on an annual basis and results should be correlated with mammographic findings. This exam should not preclude additional follow-up of suspicious palpable abnormalities. Results were given to the patient verbally at the time of exam. [facility], , 03/05/2025 12:35 PM. Electronically signed and approved by: Freddie Doshi DO
== END | disposition home or self-care (01) ==
LOC: RADMAMWWP 11:30
PROVIDERS: ATTEND Surgery
DX: N64.4 Mastodynia (principal); R92.333 Mammographic heterogeneous density, bilateral breasts; Z78.0 Asymptomatic menopausal state; Z80.3 Family history of malignant neoplasm of breast
CPT/HCPCS: 77062; 77066